=== PATIENT | male | born 1980 | race Caucasian/White ===

== ENCOUNTER 2020-06-03 10:28 | Outpatient (REF) | payer OTHER, SELFPAY | END 2020-06-03 10:29 | disposition home or self-care (01) | LOC: HO.LAB 10:28 | PROVIDERS: Visit Provider Internal Medicine | DX: Z20.828 Contact with and (suspected) exposure to other viral communicable diseases (principal) | CPT/HCPCS: C9803; U0003 ==

== ENCOUNTER 2020-06-26 08:17 | Outpatient (REF) | payer OTHER, SELFPAY | END 2020-06-26 08:18 | disposition home or self-care (01) | LOC: HO.LAB 08:17 | PROVIDERS: PCP Internal Medicine; Visit Provider Internal Medicine | DX: Z20.828 Contact with and (suspected) exposure to other viral communicable diseases (principal) | CPT/HCPCS: C9803; U0003 ==

== ENCOUNTER 2020-11-18 11:23 | Outpatient (REF) | payer OTHER, SELFPAY | END 2020-11-18 11:24 | disposition home or self-care (01) | LOC: HO.LAB 11:23 | PROVIDERS: Visit Provider Nurse Practitioner Family | DX: N39.0 Urinary tract infection, site not specified (principal); R31.9 Hematuria, unspecified | CPT/HCPCS: 87086; 87088; 87186 ==

== ENCOUNTER 2022-05-06 10:28 | Outpatient (REF) | payer OTHER, SELFPAY ==
[2022-05-06 10:52] LABS: MANUAL DIFF FLAG NO
[2022-05-06 11:56] LABS: Basophils Absolute Auto 0.1 X10*3/uL (0.0-0.2); Basophils Percent Auto 0.6 % (0-2); Eosinophils Absolute Auto 0.3 X10*3/uL (0.0-0.4); Eosinophils Percent Auto 4.1 % (0-4); Hematocrit 43.5 % (42.0-52.0); Hemoglobin 14.3 g/dl (14.0-18.0); Imm Gran Abs Auto 0.04 X10*3/uL (0.00-0.03); Imm Gran Pct Auto 0.5 % (0.0-0.4); Lymphocytes Absolute Auto 2.5 X10*3/uL (1.2-4.9); Lymphocytes Percent Auto 29.9 % (20-40); Mean Corpuscular HGB Conc 32.9 g/dl (31.0-36.0); Mean Corpuscular Volume 82.1 fL (80.0-98.0); Mean Platelet Volume 9.2 fL (9.4-12.4); Monocytes Absolute Auto 0.4 X10*3/uL (0.1-1.2); Monocytes Percent Auto 4.4 % (2-11); Neutrophils Percent Auto 60.5 % (45-73); Platelet Count 321 X10*3/uL (160-400); Red Cell Distribution Width 14.5 % (11.0-16.0); White Blood Count 8.3 X10*3/uL (4.8-10.8)
[2022-05-06 12:25] LABS: Appearance Urine Clear; Color Urine Yellow; Glucose Urine UA Negative (Negative); Leukocyte Esterase Urine Negative (Negative); Nitrite Urine Negative (Negative); PH 5.5 (5.0-9.0); Specific Gravity - Urine 1.025 (1.005-1.025); Urine Blood Negative (Negative); Urine Ketones Negative (Negative); Urine Protein Negative (Neg-Trace)
[2022-05-06 12:37] LABS: Alanine Aminotransferase 37 U/L (0-40); Albumin Level 4.1 g/dL (3.5-5.0); Alkaline Phosphatase 87 U/L (39-117); Anion Gap 18 (12-20); Aspartate Amino Transferase 24 U/L (5-37); Bilirubin Total 0.5 mg/dL (0.0-1.0); Blood Urea Nitrogen 13 mg/dL (9-16); Calcium 9.1 mg/dL (8.4-10.2); Carbon Dioxide 22 mmol/L (22-29); Chloride 103 mmol/L (96-108); Cholesterol 190 mg/dL; Estimated Glomerular Filt Rate > 60; Glucose Random 137 mg/dL (60-115); HDL Cholesterol 31 mg/dL; LDL Cholesterol Calculated 119 mg/dl; Potassium 4.5 mmol/L (3.3-5.1); Sodium 138 mmol/L (135-145); Total Protein 7.4 g/dL (6.5-8.0); Triglycerides 201 mg/dL
[2022-05-06 12:39] LABS: Bacteria Urine None Seen (None Seen); Hyaline Casts Urine 0-2 /LPF (0-2); RBC Urine 0-2 /HPF (0-2); Squamous Epithelial Cell Urine 0-2 /HPF (0-2); WBC Urine 0-5 /HPF (0-5)
[2022-05-06 12:46] LABS: Thyroid Stimulating Hormone 1.23 uIU/mL (0.32-4.0)
[2022-05-06 12:58] LABS: Folate 12.9 ng/mL (> or = 4.0); Vitamin B12 464 pg/mL (200-900)
== END 2022-05-06 10:29 | disposition home or self-care (01) ==
LOC: HO.LAB 10:28
PROVIDERS: PCP Internal Medicine; Visit Provider Internal Medicine
DX: N39.0 Urinary tract infection, site not specified (principal); R31.9 Hematuria, unspecified; E78.00 Pure hypercholesterolemia, unspecified; E66.01 Morbid (severe) obesity due to excess calories; Z68.42 Body mass index [BMI] 45.0-49.9, adult
CPT/HCPCS: 36415; 80053; 80061; 81001; 82607; 82746; 84439; 84443; 85025

== ENCOUNTER 2023-02-09 09:08 | Outpatient (REF) | payer OTHER, SELFPAY ==
[2023-02-09 10:49] LABS: Estimated Average Glucose 128 mg/dL; Hemoglobin A1c % 6.1 %
[2023-02-09 11:30] LABS: Alanine Aminotransferase 20 U/L (0-40); Albumin Level 3.9 g/dL (3.5-5.0); Alkaline Phosphatase 83 U/L (39-117); Anion Gap 11 (12-20); Aspartate Amino Transferase 14 U/L (5-37); Bilirubin Total 0.3 mg/dL (0.0-1.0); Blood Urea Nitrogen 11 mg/dL (9-16); Calcium 9.7 mg/dL (8.4-10.2); Carbon Dioxide 27 mmol/L (22-29); Chloride 104 mmol/L (96-108); Cholesterol 197 mg/dL; Estimated Glomerular Filt Rate > 60; Glucose Random 123 mg/dL (60-115); HDL Cholesterol 34 mg/dL; LDL Cholesterol Calculated 132 mg/dl; Sodium 138 mmol/L (135-145); Total Protein 7.6 g/dL (6.5-8.0); Triglycerides 156 mg/dL
== END 2023-02-09 09:09 | disposition home or self-care (01) ==
LOC: HO.LAB 09:08
PROVIDERS: PCP Internal Medicine; Visit Provider Internal Medicine
DX: E78.00 Pure hypercholesterolemia, unspecified (principal)
CPT/HCPCS: 36415; 80053; 80061; 83036

== ENCOUNTER 2023-02-18 15:13 | Outpatient (AMB) | payer OTHER, SELFPAY ==
[2023-02-18 15:20] VITALS: BP 138/78; PULSE 80; O2SAT 98; BMI 46.2
--- NOTE | 2023-02-18 15:20 | MHC.PC.OV ---
Vital Signs 02/18/23 15:20 Height 5 ft 11 in Weight 331 lb BMI 46.2 BP 138/78 Blood Pressure Location Lt brachial Position Sitting Pulse 80 Pulse Source Pulse Oximeter Pulse Oximetry (%) 98 Oxygen Delivery Method Room Air Intake Visit Reasons: DM , Choles Allergies No Known Allergies Allergy (Mild, Verified 02/18/23 15:21) NA Medication List - Last Reconciled 02/18/23 by Nidia Rubio MD blood sugar diagnostic (FreeStyle Lite Strips) As directed check the BS QD blood-glucose meter (FreeStyle Lite Meter kit) As directed [CPAP RESMED FULL FACE MASK MEDIUM 14 cm water humidified AIR As directed] lancets (FreeStyle Lancets) As directed check BS QD metformin 500 mg PO BIDWMEAL 30 days simvastatin 5 mg PO BEDTIME Tobacco use date assessed: 07/30/22 Dental Screening Dental Screen Date: 02/18/23 Did you have a dental visit in the last 12 months?: Yes Did you have a dental problem in the last 6 months where you did not have access to dental care?: No Was dental information given to patient?: Patient has dentist HPI DM , Choles HPI Details 42-year-old obese male with controlled diabetes mellitus hypertension hypercholesterolemia obstructive sleep apnea coming in for follow-up patient was last seen in October 2022 blood work just done. PFSH Medical History Elevated blood pressure reading Morbid obesity with BMI of 45.0-49.9, adult Obstructive sleep apnea Smoker Surgical History History of cholecystectomy Family History (Updated 04/30/22 @ 15:45 by Nidia Rubio MD) Mother No problems noted. Father Pre-diabetes Paternal Grandfather Colon cancer Maternal Grandfather Heart attack Social History (Updated 04/30/22 @ 15:46 by Nidia Rubio MD) Housing: House Alcohol intake: current Alcohol intake frequency: a few times a week Patient Tobacco Use Status: Former Tobacco user Tobacco use type: Cigarette Cigarettes Per Day: 3 Years Smoked: quit 12/2021 e-Cigarette/Vaping Use: Never Used Second Hand Smoke Exposure: Yes service: No Current occupational status: employed Cognitive needs: No Hearing needs: No Vision needs: Yes Questionnaire PHQ-9 Over the last 2 weeks, how often have you been bothered by any of the following problems? 1. Little interest or pleasure in doing things: not at all 2. Feeling down, depressed, or hopeless: not at all 3. Trouble falling or staying asleep, or sleeping too much: not at all 4. Feeling tired or having little energy: not at all 5. Poor appetite or overeating: not at all 6. Feeling bad about yourself - or that you are a failure or have let yourself or your family down: not at all 7. Trouble concentrating on things, such as reading the newspaper or watching television: not at all 8. Moving or speaking so slowly that other people could have noticed. Or the opposite - being so fidgety or restless that you have been moving around a lot more than usual: not at all 9. Thoughts that you would be better off or of hurting yourself in some way: not at all Total score: 0 Depression Screening Interpretation: Negative Source: Developed by Drs. Alok Ortez, Maryann Castellano, Godfrey Garcia and colleagues, with an educational nehemias from [employer]. Thrive Questionnaire Date Thrive assessed: 07/30/22 AUDIT C Alcohol Use Questionnaire (AUDIT-C) 1. How often do you have a drink containing alcohol?: 2-3 times a week 2. How many drinks containing alcohol do you have on a typical day when you are drinking?: 1 or 2 3. How often do you have six or more drinks on one occasion?: Never Total Score: 3 Score Reviewed/Action Taken: Yes ULI-7 AMB Questionnaire ULI-7 Date ULI - 7 assessed: 07/30/22 Source: Developed by Drs. Alok Ortez, Maryann Castellano, Godfrey Garcia and colleagues, with an educational nehemias from [employer]. Physical exam (Primary Care) Vital Signs: Last Vital Signs Pulse 80 02/18/23 15:20 BP 138/78 02/18/23 15:20 Pulse Ox 98 02/18/23 15:20 Oxygen Delivery Method Room Air 02/18/23 15:20 BMI result Body Mass Index 46.2 Tobacco/Smoking Status: Tobacco use Status Tobacco use date assessed 07/30/22 02/18/23 15:24 Patient Tobacco Use Status Former Tobacco user 02/18/23 15:24 Tobacco use type Cigarette 08/04/23 15:24 e-Cigarette/Vaping Use Never Used 02/18/23 15:24 PHQ-9: PHQ-9 Score PHQ-9: Total score 0 02/18/23 15:24 Depression Screening Interpretation: Negative Thrive Assessment: Date of Thrive Assessment Date Thrive assessed 07/30/22 02/18/23 15:24 Const General: alert; No acute distress Eyes Conjunctivae: conjunctivae normal Resp Auscultation: clear to auscultation bilaterally Cardio Rate: regular rate Rhythm: regular rhythm GI Inspection: Yes normal to inspection Extrem General: Yes normal to inspection and No edema Assessment and Plan Assessment & Plan (1) Morbid obesity with BMI of 45.0-49.9, adult: Code(s): E66.01 - Morbid (severe) obesity due to excess calories; Z68.42 - Body mass index [BMI] 45.0-49.9, adult Plan: Diet and exercise (2) Type 2 diabetes mellitus with hyperglycemia: Comment: Dostal eye Code(s): E11.65 - Type 2 diabetes mellitus with hyperglycemia Plan: Decrease the amount of carbohydrate intake, pasta, bread, rice and potatoes are all sugar and that is aside from all the sweet stuff, remember that fruits are good but they are Sweet also. Hemoglobin A1c goal of less than 6.5 patient is on metformin 500 mg twice a day (3) Hypercholesterolemia: Code(s): E78.00 - Pure hypercholesterolemia, unspecified Plan: Avoid fried foods, chicken skin, eggs, butter margarine, pastries and meat. Be it pork or beef they have a lot of cholesterol LDL goal of less than 100 and is going to be started on simvastatin 5 mg at bedtime and will retest in 3 months (4) Obstructive sleep apnea: Comment: CPAP Code(s): G47.33 - Obstructive sleep apnea (adult) (pediatric) Plan: Continue to use the CPAP more than 4 hours a night and benefits from this Orders: Orders Comprehensive Met. Panel 3 Months E78.00 - Pure hypercholesterolemia, unspecified Hemoglobin A1c 3 Months E78.00 - Pure hypercholesterolemia, unspecified Lipid Panel 3 Months E78.00 - Pure hypercholesterolemia, unspecified Medications: New simvastatin 5 mg PO BEDTIME 30 tabs 4RF E78.00 - Pure hypercholesterolemia, unspecified [CPAP RESMED FULL FACE MASK MEDIUM 14 cm water humidified AIR] As directed 1 ea 0RF G47.33 - Obstructive sleep apnea (adult) (pediatric) Coding Level of Care Code Est Pt Level 4 (13769) Diagnoses Morbid obesity with BMI of 45.0-49.9, adult E66.01; Z68.42 Type 2 diabetes mellitus with hyperglycemia E11.65 Hypercholesterolemia E78.00 Obstructive sleep apnea G47.33 Additional Codes PHQ-9 - 88113 - PHQ-9 Billing: Y ([id number])
== END 2023-02-18 15:42 | disposition home or self-care (01) ==
PROVIDERS: PCP Internal Medicine; Visit Provider Internal Medicine
DX: E66.01 Morbid (severe) obesity due to excess calories (principal); Z68.42 Body mass index [BMI] 45.0-49.9, adult; E11.65 Type 2 diabetes mellitus with hyperglycemia; E78.00 Pure hypercholesterolemia, unspecified; G47.33 Obstructive sleep apnea (adult) (pediatric)
CPT/HCPCS: 99214

== ENCOUNTER 2023-05-10 10:44 | Outpatient (REF) | payer OTHER, SELFPAY ==
[2023-05-10 11:27] LABS: Estimated Average Glucose 140 mg/dL; Hemoglobin A1c % 6.5 % (<6.0)
[2023-05-10 12:32] LABS: Alanine Aminotransferase 34 U/L (0-40); Alkaline Phosphatase 85 U/L (39-117); Anion Gap 16 (12-20); Aspartate Amino Transferase 23 U/L (5-37); Bilirubin Total 0.4 mg/dL (0.0-1.0); Blood Urea Nitrogen 9 mg/dL (9-16); Calcium 9.5 mg/dL (8.4-10.2); Carbon Dioxide 23 mmol/L (22-29); Chloride 103 mmol/L (96-108); Cholesterol 202 mg/dL (<200); Estimated Glomerular Filt Rate > 60; Glucose Random 130 mg/dL (60-115); HDL Cholesterol 33 mg/dL (>40); LDL Cholesterol Calculated 129 mg/dL (<100); Potassium 4.1 mmol/L (3.3-5.1); Sodium 138 mmol/L (135-145); Total Protein 7.6 g/dL (6.5-8.0); Triglycerides 203 mg/dL (<150)
== END 2023-05-10 10:45 | disposition home or self-care (01) ==
LOC: HO.LAB 10:44
PROVIDERS: PCP Internal Medicine; Visit Provider Internal Medicine
DX: E78.00 Pure hypercholesterolemia, unspecified (principal)
CPT/HCPCS: 36415; 80053; 80061; 83036

== ENCOUNTER 2023-05-12 15:45 | Outpatient (AMB) | payer OTHER, SELFPAY ==
[2023-05-12 16:12] VITALS: BP 140/80; PULSE 90; O2SAT 98; BMI 46.4
--- NOTE | 2023-05-12 16:12 | A.OFFPC_ITS ---
Vital Signs 05/12/23 16:12 05/12/23 16:52 Height 5 ft 11 in Weight 333 lb BMI 46.4 BP 140/80 H 124/70 Blood Pressure Location Lt brachial Lt brachial Position Sitting Sitting Pulse 90 Pulse Source Pulse Oximeter Pulse Oximetry (%) 98 Oxygen Delivery Method Room Air Intake Visit Reasons: physical Allergies No Known Allergies Allergy (Mild, Verified 05/12/23 16:12) NA Medication List - Last Reconciled 05/12/23 by Nidia Rubio MD blood sugar diagnostic (FreeStyle Lite Strips) As directed check the BS QD blood-glucose meter (FreeStyle Lite Meter kit) As directed [CPAP RESMED FULL FACE MASK MEDIUM 14 cm water humidified AIR As directed] lancets (FreeStyle Lancets) As directed check BS QD metformin 500 mg PO BIDWMEAL 30 days simvastatin 5 mg PO BEDTIME Tobacco use date assessed: 07/30/22 Dental Screening Dental Screen Date: 05/12/23 Did you have a dental visit in the last 12 months?: Yes Did you have a dental problem in the last 6 months where you did not have access to dental care?: No Was dental information given to patient?: Patient has dentist HPI physical HPI Details 42-year-old morbidly obese male with sheri betes mellitus hypercholesterolemia obstructive sleep apnea last seen in February 2023. Patient is here for physical exam. feverish ,LEON, congested, no sore throat, mild sob, PFSH Medical History Obstructive sleep apnea Morbid obesity with BMI of 45.0-49.9, adult Elevated blood pressure reading Smoker Surgical History History of cholecystectomy Family History Mother No problems noted. Father Pre-diabetes Paternal Grandfather Colon cancer Maternal Grandfather Heart attack Social History (Updated 05/12/23 @ 16:55 by Nidia Rubio MD) Housing: House Alcohol intake: current Alcohol intake frequency: a few times a week Patient Tobacco Use Status: Former Tobacco user Tobacco use type: Cigarette Cigarettes Per Day: 3 Years Smoked: quit 12/2021 cigar smoking e-Cigarette/Vaping Use: Never Used Second Hand Smoke Exposure: Yes service: No Current occupational status: employed Cognitive needs: No Hearing needs: No Vision needs: Yes Questionnaire PHQ-9 Over the last 2 weeks, how often have you been bothered by any of the following problems? 1. Little interest or pleasure in doing things: not at all 2. Feeling down, depressed, or hopeless: not at all 3. Trouble falling or staying asleep, or sleeping too much: not at all 4. Feeling tired or having little energy: not at all 5. Poor appetite or overeating: not at all 6. Feeling bad about yourself - or that you are a failure or have let yourself or your family down: not at all 7. Trouble concentrating on things, such as reading the newspaper or watching television: not at all 8. Moving or speaking so slowly that other people could have noticed. Or the opposite - being so fidgety or restless that you have been moving around a lot more than usual: not at all 9. Thoughts that you would be better off or of hurting yourself in some way: not at all Total score: 0 Depression Screening Interpretation: Negative Depression Screening Done: Yes Source: Developed by Drs. Alok Ortez, Maryann Castellano, Godfrey Garcia and colleagues, with an educational nehemias from [employer]. Thrive Questionnaire Date Thrive assessed: 07/30/22 AUDIT C Alcohol Use Questionnaire (AUDIT-C) 1. How often do you have a drink containing alcohol?: 2-3 times a week 2. How many drinks containing alcohol do you have on a typical day when you are drinking?: 1 or 2 3. How often do you have six or more drinks on one occasion?: Never Total Score: 3 Score Reviewed/Action Taken: Yes ULI-7 AMB Questionnaire ULI-7 Date ULI - 7 assessed: 07/30/22 Source: Developed by Drs. Alok Ortez, Maryann Castellano, Godfrey Garcia and colleagues, with an educational nehemias from [employer]. Review of Systems Const Denies poor appetite and Denies weakness Eyes Denies no additional complaints ENT Reports Normal hearing present, Denies dizziness, Denies nasal congestion, Denies tinnitus and Denies sore throat Card Denies chest pain, Denies syncope, Denies rapid heart rate and Denies dyspnea Resp Denies cough and Denies dyspnea GI Denies change in stool character, Reports constipation, Denies diarrhea, Denies nausea and Denies vomiting Denies dysuria and Denies urinary frequency Neuro Reports Normal hearing present, Denies confusion, Denies dizziness, Denies syncope and Denies weakness Psych Denies confusion Physical exam (Primary Care) Vital Signs: Last Vital Signs Pulse 90 05/12/23 16:12 BP 140/80 H 05/12/23 16:12 Pulse Ox 98 05/12/23 16:12 Oxygen Delivery Method Room Air 05/12/23 16:12 BMI result Body Mass Index 46.4 Tobacco/Smoking Status: Tobacco use Status Tobacco use date assessed 07/30/22 05/12/23 16:13 Patient Tobacco Use Status Former Tobacco user 05/12/23 16:13 Tobacco use type Cigarette 05/12/23 16:13 e-Cigarette/Vaping Use Never Used 05/12/23 16:13 PHQ-9: PHQ-9 Score PHQ-9: Total score 0 05/12/23 16:13 Depression Screening Interpretation: Negative Thrive Assessment: Date of Thrive Assessment Date Thrive assessed 07/30/22 05/12/23 16:13 Const General: alert and awake; No confusion Orientation/consciousness: No confusion HENMT Head: Yes normocephalic Ears: external ears normal and TM's normal bilaterally Face and sinus: Yes normal facial exam Mouth: moist mucous membranes Throat: Yes tonsils normal Eyes Conjunctivae: conjunctivae normal Pupils: Equal, round and reactive pupils present and Pupil accommodation reflex normal Direct Ophthalmoscopy: normal light reflex Neck Neck: No lymphadenopathy Thyroid: Thyroid normal Chest Chest palpation & inspection: normal inspection of the chest Resp Effort & Inspection: normal respiratory effort and no audible wheezes Auscultation: clear to auscultation bilaterally, no crackles, no wheezes and lung sounds not diminished Cardio Rate: regular rate Rhythm: regular rhythm Peripheral pulses: radial pulses present and dorsalis pedis present GI Palpation (GI): no masses Auscultation: normal bowel sounds and normoactive bowel sounds Rectal Exam - Male: Yes deferred Skin Other: Multiple 5 mm skin tags over the neck area posteriorly Neuro General: deep tendon reflexes 2+ bilaterally and No confusion Cranial nerves: Yes Equal, round and reactive pupils present, Yes Midline tongue present, Yes Normal hearing present and Yes Ability to bilaterally elevate shoulders present Cognition (Neuro): normal cognition Gait exam (Neuro): Normal gait present Motor exam (neuro): 5/5 motor strength present throughout Deep tendon reflexes (DTR's): Right brachioradialis reflex intensity grade: 2+, Left brachioradialis reflex intensity grade: 2+, Right patellar reflex intensity grade: 2+ and Left patellar reflex intensity grade: 2+ Extrem General: No edema Assessment and Plan Assessment & Plan (1) Annual physical exam: Code(s): Z00.00 - Encounter for general adult medical examination without abnormal findings (2) Obstructive sleep apnea: Comment: CPAP Code(s): G47.33 - Obstructive sleep apnea (adult) (pediatric) Plan: Continue to use the CPAP more than 4 hours a night benefits from this (3) Morbid obesity with BMI of 45.0-49.9, adult: Code(s): E66.01 - Morbid (severe) obesity due to excess calories; Z68.42 - Body mass index [BMI] 45.0-49.9, adult Plan: Diet and exercise (4) Type 2 diabetes mellitus with hyperglycemia: Comment: Dostal eye Code(s): E11.65 - Type 2 diabetes mellitus with hyperglycemia Plan: Decrease the amount of carbohydrate intake, pasta, bread, rice and potatoes are all sugar and that is aside from all the sweet stuff, remember that fruits are good but they are Sweet also. Hemoglobin A1c goal of less than 6.5 patient is on metformin 500 mg twice a day hemoglobin A1c is 6.5 (5) Hypertension: Code(s): I10 - Essential (primary) hypertension Plan: Presently not on any medication (6) Hypercholesterolemia: Code(s): E78.00 - Pure hypercholesterolemia, unspecified Plan: Avoid fried foods, chicken skin, eggs, butter margarine, pastries and meat. Be it pork or beef they have a lot of cholesterol LDL goal of less than 130 and triglyceride of less than 150 patient has been placed on simvastatin 5 mg once a day concern that cholesterol is elevated still but patient is aware of his indiscriminately eating and will do better, decline any change in dose of medication (7) Upper respiratory infection: Code(s): J06.9 - Acute upper respiratory infection, unspecified Plan: Discussed with the patient that I do not see any signs of bacterial infection. Patient is bothered by the phlegm and so advised to take Mucinex 600 mg twice a day for the phlegm. Advised to increase oral fluids. For dry cough Delsym (8) Skin tag: Code(s): L91.8 - Other hypertrophic disorders of the skin Plan: Noted on the right neck area, referral to Dermatology Orders: Orders Complete Blood Count Auto Diff 3 Months E11.65 - Type 2 diabetes mellitus with hyperglycemia Comprehensive Met. Panel 3 Months E11.65 - Type 2 diabetes mellitus with hyperglycemia Vitamin B12 and Folate 3 Months E11.65 - Type 2 diabetes mellitus with hyperglycemia Hemoglobin A1c 3 Months E11.65 - Type 2 diabetes mellitus with hyperglycemia Lipid Panel 3 Months E11.65 - Type 2 diabetes mellitus with hyperglycemia, E78.00 - Pure hypercholesterolemia, unspecified Free T4 (Free Thyroxine) 3 Months E11.65 - Type 2 diabetes mellitus with hyperglycemia Thyroid Stimulating Hormone 3 Months E11.65 - Type 2 diabetes mellitus with hyperglycemia Creatinine Urine 3 Months E11.65 - Type 2 diabetes mellitus with hyperglycemia Microalbumin, Random (w Creat) 3 Months E11.65 - Type 2 diabetes mellitus with hyperglycemia Referrals Dermatology Referral L91.8 - Other hypertrophic disorders of the skin Medications: New guaifenesin ER (Mucinex) 600 mg PO Q12H PRN 20 tabs 0RF congestion J06.9 - Acute upper respiratory infection, unspecified Coding Level of Care Code Est Pt Prev Care 40-64y(19304) Diagnoses Annual physical exam Z00.00 Obstructive sleep apnea G47.33 Morbid obesity with BMI of 45.0-49.9, adult E66.01; Z68.42 Type 2 diabetes mellitus with hyperglycemia E11.65 Hypertension I10 Hypercholesterolemia E78.00 Upper respiratory infection J06.9 Skin tag L91.8 Additional Codes PHQ-9 - 53821 - PHQ-9 Billing: ([id number])
[2023-05-12 16:52] VITALS: BP 124/70
== END 2023-05-12 17:05 | disposition home or self-care (01) ==
PROVIDERS: Visit Provider Internal Medicine
DX: Z00.00 Encounter for general adult medical examination without abnormal findings (principal); E66.01 Morbid (severe) obesity due to excess calories; Z68.42 Body mass index [BMI] 45.0-49.9, adult; E11.65 Type 2 diabetes mellitus with hyperglycemia; F17.210 Nicotine dependence, cigarettes, uncomplicated; G47.33 Obstructive sleep apnea (adult) (pediatric); I10 Essential (primary) hypertension; E78.00 Pure hypercholesterolemia, unspecified; J06.9 Acute upper respiratory infection, unspecified; L91.8 Other hypertrophic disorders of the skin
CPT/HCPCS: 99396

== ENCOUNTER 2023-11-23 09:10 | Outpatient (REF) | payer OTHER, SELFPAY ==
[2023-11-23 09:32] LABS: MANUAL DIFF FLAG NO
[2023-11-23 10:07] LABS: Basophils Percent Auto 0.6 % (0-2); Eosinophils Absolute Auto 0.3 X10*3/uL (0.0-0.4); Eosinophils Percent Auto 4.5 % (0-4); Hematocrit 41.1 % (42.0-52.0); Hemoglobin 13.6 g/dl (14.0-18.0); Imm Gran Abs Auto 0.07 X10*3/uL (0.00-0.03); Lymphocytes Absolute Auto 2.4 X10*3/uL (1.2-4.9); Lymphocytes Percent Auto 35.9 % (20-40); Mean Corpuscular HGB Conc 33.1 g/dl (31.0-36.0); Mean Corpuscular Volume 84.6 fL (80.0-98.0); Mean Platelet Volume 9.5 fL (9.4-12.4); Monocytes Absolute Auto 0.4 X10*3/uL (0.1-1.2); Monocytes Percent Auto 5.9 % (2-11); Neutrophils Absolute Auto 3.5 x10*3/uL (2.0-8.3); Neutrophils Percent Auto 52.1 % (45-73); Platelet Count 352 X10*3/uL (160-400); Red Blood Count 4.86 X10*6/uL (4.60-5.80); Red Cell Distribution Width 13.9 % (11.0-16.0); White Blood Count 6.7 X10*3/uL (4.8-10.8)
[2023-11-23 10:15] LABS: Estimated Average Glucose 237 mg/dL; Hemoglobin A1c % 9.9 % (<6.0)
[2023-11-23 10:38] LABS: Alanine Aminotransferase 68 U/L (0-40); Albumin Level 3.9 g/dL (3.5-5.0); Alkaline Phosphatase 98 U/L (39-117); Anion Gap 17 (12-20); Aspartate Amino Transferase 67 U/L (5-37); Bilirubin Total 0.4 mg/dL (0.0-1.0); Blood Urea Nitrogen 12 mg/dL (9-16); Calcium 9.6 mg/dL (8.4-10.2); Carbon Dioxide 21 mmol/L (22-29); Chloride 104 mmol/L (96-108); Cholesterol 192 mg/dL (<200); Estimated Glomerular Filt Rate > 60; Glucose Random 173 mg/dL (60-115); HDL Cholesterol 21 mg/dL (>40); LDL Cholesterol Calculated 132 mg/dL (<100); Potassium 3.7 mmol/L (3.3-5.1); Sodium 138 mmol/L (135-145); Total Protein 7.8 g/dL (6.5-8.0); Triglycerides 199 mg/dL (<150)
[2023-11-23 11:01] LABS: Free T4 (Free Thyroxine) 1.34 ng/dL (0.71-1.85); Thyroid Stimulating Hormone 1.26 uIU/mL (0.32-4.0)
[2023-11-23 11:02] LABS: Vitamin B12 906 pg/mL (200-900)
[2023-11-23 11:25] LABS: Microalbum/Creatinine Ratio Ur 5.5 ug/mg cr (<30)
== END 2023-11-23 09:11 | disposition home or self-care (01) ==
LOC: HO.LAB 09:10
PROVIDERS: PCP Internal Medicine; Visit Provider Internal Medicine
DX: E11.65 Type 2 diabetes mellitus with hyperglycemia (principal); E78.00 Pure hypercholesterolemia, unspecified
CPT/HCPCS: 36415; 80053; 80061; 82043; 82570; 82607; 82746; 83036; 84439; 84443; 85025

== ENCOUNTER 2023-11-24 12:46 | Outpatient (AMB) | payer OTHER, SELFPAY ==
[2023-11-24 12:58] VITALS: BP 134/70; PULSE 77; O2SAT 98; BMI 45.5
--- NOTE | 2023-11-24 12:58 | A.OFFPC_ITS ---
Vital Signs 11/24/23 12:58 Height 5 ft 11 in Weight 326 lb BMI 45.5 BP 134/70 Blood Pressure Location Lt brachial Position Sitting Pulse 77 Pulse Source Pulse Oximeter Pulse Oximetry (%) 98 Oxygen Delivery Method Room Air Intake Visit Reasons: 3 month follow up Allergies No Known Allergies Allergy (Mild, Verified 11/24/23 12:58) NA Tobacco use date assessed: 11/24/23 Dental Screening Dental Screen Date: 11/24/23 Did you have a dental visit in the last 12 months?: Yes Did you have a dental problem in the last 6 months where you did not have access to dental care?: No Was dental information given to patient?: Patient has dentist HPI 3 month follow up HPI Details 43-year-old morbidly obese male with sheri betes mellitus controlled obstructive sleep apnea hypertension hypercholesterolemia last seen in April 2023 patient is here for follow-up. PFSH Medical History Morbid obesity with BMI of 45.0-49.9, adult Obstructive sleep apnea Elevated blood pressure reading Smoker Surgical History History of cholecystectomy Family History Mother No problems noted. Father Pre-diabetes Paternal Grandfather Colon cancer Maternal Grandfather Heart attack Social History (Updated 05/12/23 @ 16:55 by Nidia Rubio MD) Housing: House Alcohol intake: current Alcohol intake frequency: a few times a week Patient Tobacco Use Status: Former Tobacco user Tobacco use type: Cigarette Cigarettes Per Day: 3 Years Smoked: quit 12/2021 cigar smoking e-Cigarette/Vaping Use: Never Used Second Hand Smoke Exposure: Yes service: No Current occupational status: employed Cognitive needs: No Hearing needs: No Vision needs: Yes Questionnaire PHQ-9 Over the last 2 weeks, how often have you been bothered by any of the following problems? 1. Little interest or pleasure in doing things: not at all 2. Feeling down, depressed, or hopeless: not at all 3. Trouble falling or staying asleep, or sleeping too much: not at all 4. Feeling tired or having little energy: not at all 5. Poor appetite or overeating: not at all 6. Feeling bad about yourself - or that you are a failure or have let yourself or your family down: not at all 7. Trouble concentrating on things, such as reading the newspaper or watching television: not at all 8. Moving or speaking so slowly that other people could have noticed. Or the opposite - being so fidgety or restless that you have been moving around a lot more than usual: not at all 9. Thoughts that you would be better off or of hurting yourself in some way: not at all Total score: 0 Depression Screening Interpretation: Negative Depression Screening Done: Yes Source: Developed by Drs. Alok Ortez, Maryann Castellano, Godfrey Garcia and colleagues, with an educational nehemias from [employer]. Thrive Questionnaire Date Thrive assessed: 11/24/23 I am a: Patient What is your living situation today?: I have a steady place to live Within the past 12 months, did the food you bought not last and you didn't have the money to get more?: Never true Within the past 12 months, did you worry whether your food would run out before you got money to buy more?: Never true Do you have trouble paying for medicines?: No Do you have trouble getting transportation to medical appointments?: No Do you have trouble paying your heating and electricity bill?: No Do you have trouble taking care of your child, family member or friend?: No Do you have trouble with day-to-day activities such as bathing, preparing meals, shopping, managing finances, etc.?: No Are you currently unemployed and looking for a job?: No Are you interested in more education?: No Currently or been in a relationship where the following occur: no concerns reported THRIVE Score: 0 AUDIT C Alcohol Use Questionnaire (AUDIT-C) 1. How often do you have a drink containing alcohol?: 2-3 times a week 2. How many drinks containing alcohol do you have on a typical day when you are drinking?: 1 or 2 3. How often do you have six or more drinks on one occasion?: Never Total Score: 3 Score Reviewed/Action Taken: Yes ULI-7 AMB Questionnaire ULI-7 Date ULI - 7 assessed: 11/24/23 Feeling nervous, anxious, or on edge: 0 = Not at all Not being able to stop or control worryin = Not at all Worrying too much about different things: 0 = Not at all Trouble relaxin = Not at all Being so restless that it is hard to sit still: 0 = Not at all Becoming easily annoyed or irritable: 0 = Not at all Feeling afraid as if something awful might happen: 0 = Not at all Total ULI-7 score (0-4 normal; 5-9 mild; 10-14 moderate; 15-21 severe): 0 Source: Developed by Drs. Alok Ortez, Maryann Castellano, Godfrey Garcia and colleagues, with an educational nehemias from [employer]. Physical exam (Primary Care) Vital Signs: Oxygen Delivery Method Room Air 11/24/23 12:58 BMI result Body Mass Index 45.5 Tobacco/Smoking Status: Tobacco use Status Tobacco use date assessed 07/30/22 05/12/23 16:13 Patient Tobacco Use Status Former Tobacco user 05/12/23 16:55 Tobacco use type Cigarette 05/12/23 16:55 e-Cigarette/Vaping Use Never Used 05/12/23 16:55 Depression Screening Interpretation: Negative Thrive Assessment: Date of Thrive Assessment Date Thrive assessed 07/30/22 05/12/23 16:13 Currently or been in a relationship where the following occur: no concerns reported Const General: alert; No acute distress Eyes Conjunctivae: conjunctivae normal Resp Auscultation: clear to auscultation bilaterally Cardio Rate: regular rate Rhythm: regular rhythm GI Inspection: Yes normal to inspection Extrem General: Yes normal to inspection and No edema Assessment and Plan Assessment & Plan (1) Type 2 diabetes mellitus with hyperglycemia: Comment: Dostal eye Code(s): E11.65 - Type 2 diabetes mellitus with hyperglycemia Plan: Decrease the amount of carbohydrate intake, pasta, bread, rice and potatoes are all sugar and that is aside from all the sweet stuff, remember that fruits are good but they are Sweet also. Presently on metformin 500 mg twice a day concern that hemoglobin A1c has increased to 9.9. Will need to add medication. (2) Hypercholesterolemia: Code(s): E78.00 - Pure hypercholesterolemia, unspecified Plan: Avoid fried foods, chicken skin, eggs, butter margarine, pastries and meat. Be it pork or beef they have a lot of cholesterol presently on simvastatin 5 mg once a day LDL goal is less than 100 and triglyceride of less than 150. (3) Obstructive sleep apnea: Comment: CPAP Code(s): G47.33 - Obstructive sleep apnea (adult) (pediatric) Plan: Continue to use the CPAP more than 4 hours a night and benefits from this (4) Morbid obesity: Code(s): E66.01 - Morbid (severe) obesity due to excess calories Plan: Concern about the weight, has decreased a little bit continue with diet and exercise (5) LFT elevation: Code(s): R79.89 - Other specified abnormal findings of blood chemistry (6) Anemia: Code(s): D64.9 - Anemia, unspecified (7) Constipation: Code(s): K59.00 - Constipation, unspecified (8) Rectal bleed: Code(s): K62.5 - Hemorrhage of anus and rectum Orders: Orders Lipid Panel 3 Months E78.00 - Pure hypercholesterolemia, unspecified, R7.89 - Other specified abnormal findings of blood chemistry Complete Blood Count Auto Diff 3 Months D64.9 - Anemia, unspecified Ferritin 3 Months D64.9 - Anemia, unspecified Comprehensive Met. Panel 3 Months R7.89 - Other specified abnormal findings of blood chemistry Hepatitis B,C Profile 3 Months R7.89 - Other specified abnormal findings of blood chemistry US abdomen limited Today R7.89 - Other specified abnormal findings of blood chemistry IRON PROFILE 3 Months D64.9 - Anemia, unspecified Reticulocyte Count 3 Months D64.9 - Anemia, unspecified Vitamin B12 and Folate 3 Months D64.9 - Anemia, unspecified Medications: New sennosides-docusate sodium 8.6-50 mg (Senna Plus) 1 tab-cap PO BEDTIME 60 tabs 0RF K59.00 - Constipation, unspecified hydrocortisone 2.5% (Proctosol HC) 1 appl NC BID-QID PRN 30 grams 0RF itching K62.5 - Hemorrhage of anus and rectum semaglutide (Ozempic) for 4 weeks 0.25 mg (0.368 mL) subcut QWEEK 3 mL 1RF E11.65 - Type 2 diabetes mellitus with hyperglycemia Changed From simvastatin 5 mg PO BEDTIME 30 tabs 1RF E78.00 - Pure hypercholesterolemia, unspecified To simvastatin 10 mg PO BEDTIME 30 tabs 3RF E78.00 - Pure hypercholesterolemia, unspecified Coding Level of Care Code Est Pt Level 4 (26008) Diagnoses Type 2 diabetes mellitus with hyperglycemia E11.65 Hypercholesterolemia E78.00 Obstructive sleep apnea G47.33 Morbid obesity E66.01 LFT elevation R79.89 Anemia D64.9 Constipation K59.00 Rectal bleed K62.5 Additional Codes PHQ-9 - 25986 - PHQ-9 Billing: ([id number])
== END 2023-11-24 13:19 | disposition home or self-care (01) ==
PROVIDERS: PCP Internal Medicine; Visit Provider Internal Medicine
DX: E11.65 Type 2 diabetes mellitus with hyperglycemia (principal); E66.01 Morbid (severe) obesity due to excess calories; Z68.42 Body mass index [BMI] 45.0-49.9, adult; E78.00 Pure hypercholesterolemia, unspecified; G47.33 Obstructive sleep apnea (adult) (pediatric); R79.89 Other specified abnormal findings of blood chemistry; D64.9 Anemia, unspecified; K59.00 Constipation, unspecified; K62.5 Hemorrhage of anus and rectum
CPT/HCPCS: 99214

== ENCOUNTER 2023-12-16 07:49 | Outpatient (REF) | payer OTHER, SELFPAY ==
--- NOTE | ~2023-12-16 | US_ITS ---
EXAMINATION: US ABDOMEN COMPLETE CLINICAL INFORMATION: Other specified abnormal findings of blood chemistry. COMPARISON: None available. TECHNIQUE: Real-time imaging of the abdominal viscera. Technically severely limited study secondary to body habitus. FINDINGS: PANCREAS: Poorly visualized. ABDOMINAL AORTA: Poorly visualized. INFERIOR VENA CAVA: Poorly visualized. LIVER: Increased hepatic parenchymal heterogeneity and echogenicity could be associated with hepatocellular disease/hepatic steatosis and severely limits visualization. Correlation with liver function tests and clinical exam recommended to determine further management. GALLBLADDER: Surgically absent. COMMON BILE DUCT: Normal in caliber measuring 0.5 cm in diameter. RIGHT KIDNEY: No hydronephrosis. No renal calculi. Limited visualization. The kidney measures 10.4 cm in maximum dimension. LEFT KIDNEY: No hydronephrosis. No renal calculi. Limited visualization. The kidney measures 13.1 cm in maximum dimension. SPLEEN: Splenomegaly The spleen measures 13.4 cm in maximum dimension. FREE FLUID: None. US/US abdomen complete IMPRESSION: 1. Increased hepatic parenchymal heterogeneity and echogenicity could be associated with hepatocellular disease/hepatic steatosis and severely limits visualization. Correlation with liver function tests and clinical exam recommended to determine further management. 2. Splenomegaly. 3. Gallbladder surgically absent. 4. Severely limited visualization due to bowel gas and body habitus. CT scanning should be considered for better visualization based on the clinical assessment.
== END 2023-12-16 07:50 | disposition home or self-care (01) ==
LOC: HO.US 07:49
PROVIDERS: PCP Internal Medicine; Visit Provider Internal Medicine
DX: R79.89 Other specified abnormal findings of blood chemistry (principal)
CPT/HCPCS: 76700

== ENCOUNTER 2024-03-27 13:42 | Outpatient (AMB) | payer OTHER, SELFPAY ==
--- NOTE | 2024-03-27 13:47 | A.OFFVIS_ITS ---
Vital Signs 03/27/24 13:51 Height 5 ft 11 in Weight 316 lb 9.341 oz BMI 44.1 BP 114/72 Blood Pressure Location Rt brachial Position Sitting Pulse 95 Pulse Source Pulse Oximeter Intake Visit Reasons: DM/LVM Intake Note: New patient present today for Diabetes Mellitus. 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 The patient was diagnosed in 2022. Patient tells me that earlier this year he went on a trip to the [facility] in [facility]. He was drinking more alcohol and not watching his diet at all. When he returned his lab work had worsened. He has made recent changes to his diet. He started monitoring his blood sugar. Patient says initially his fasting glucose readings were 300-400. During the last month they have been between 108-120. Hemoglobin a1c 11.9% today. Not taking Ozempic 0.25 mg on med list. Patient says it was not approved by insurance. He wants to try a GLP 1 to help with weight loss. Patient says he has lost about 35 lb over the last year with lifestyle modification. Taking metformin 500 mg twice a day. Metformin causes stomach cramps sometimes (one per month). He says this is manageable. His grandfather had diabetes. Current medication regimen: Metformin 500 mg twice a day. Diet: Breakfast-eggs and wheat toast or [place]e muffin. Lunch-small serving rice, corn or chicken or beef (baked and grilled) Dinner-fruit salad, vegetables, yogurt, salad Snacks/desserts: not usually Stopped soda and does not drink juice. Drinks water. Nonsmoker. No alcohol use since the vacation he took. Hypoglycemia symptoms: none Hyperglycemia symptoms: polydipsia, polyuria Eye exam: 1 week ago- no retinopathy per patient. Microvascular complications: none Macrovascular complications: none Hyperlipidemia: treated with simvastatin 10 mg. ROS: Constitutional: No unexplained weight loss, fever, chills, fatigue or night sweats. Eyes: No vision changes Respiratory: No shortness of breath, cough or sputum production. Cardiovascular: No chest pain, chest pressure or chest discomfort. Neurologic: No headache, dizziness, syncope Skin: No rash Endocrine: No cold or heat intolerance. Physical exam: Constitutional: Alert, in no distress. Neck: Supple, Full range of motion. No lymphadenopathy. No palpable thyroid masses. Respiratory: Clear to auscultation. Cardiovascular: S1 S2 regular. No murmurs. Right foot: Warm and well perfused. No clubbing, cyanosis or edema. DP pulse 3+. Intact vibratory sensation. Intact sensation to monofilament. Left foot: Warm and well perfused. No clubbing, cyanosis or edema. DP pulse 3+. Intact vibratory sensation. Intact sensation to monofilament. PFSH Medical History Morbid obesity with BMI of 45.0-49.9, adult Obstructive sleep apnea Elevated blood pressure reading Smoker Surgical History History of cholecystectomy Family History Mother No problems noted. Father Pre-diabetes Paternal Grandfather Colon cancer Maternal Grandfather Heart attack Social History Housing: House Alcohol intake: current Alcohol intake frequency: a few times a week Patient Tobacco Use Status: Former Tobacco user Tobacco use type: Cigarette Cigarettes Per Day: 3 Years Smoked: quit 12/2021 cigar smoking e-Cigarette/Vaping Use: Never Used Second Hand Smoke Exposure: Yes service: No Current occupational status: employed Cognitive needs: No Hearing needs: No Vision needs: Yes Physical Exam Vital Signs: Last Vital Signs Pulse 95 03/27/24 13:51 BP 114/72 03/27/24 13:51 BMI result Body Mass Index 44.1 Results AMB Hemoglobin A1c AMB Hemoglobin A1c 11.9 % Last Edit by LUCI Garrison on 03/27/24 14:07 Results Reviewed Results Reviewed: Laboratory Last Values Glucose (Clinic) 328 mg/dL (60-115) H 03/27/24 13:58 Laboratory Tests 05/10/23 11/23/23 11/23/23 10:59 09:29 09:30 Creatinine 0.83 Estimated GFR > 60 Hemoglobin A1c % 6.5 H 9.9 H Triglycerides 199 H Cholesterol 192 LDL Cholesterol, Calc 132 H HDL Cholesterol 21 L TSH 1.26 Free T4 1.34 Urine Creatinine 340.00 Urine Microalbumin 19.0 Microalb/Creat Ratio 5.5 Assessment & Plan Assessment & Plan (1) Type 2 diabetes mellitus with hyperglycemia: Code(s): E11.65 - Type 2 diabetes mellitus with hyperglycemia Category: Medical Qualifiers: 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 Patient declined increase in metformin. States he does not want to get side effects with the medication. Offered to change to extended release formulation which may minimize side effects. He declined. He will continue 500 mg twice daily. He is eager to start GLP 1 to help with weight loss, and I would like him to start the medication given uncontrolled diabetes and hepatic steatosis. Congratulated him on weight loss with lifestyle modifications. I prescribed Mounjaro 2.5 mg weekly. Side effects administration reviewed. He denies contraindications to this type of medication. Discussed need for titration based on tolerability and response. Patient will call me after he takes the 3rd injection. If he is tolerating this we will increase to 5 mg once weekly. I recommended compliance with home glucose monitoring. I am unsure if patient will be compliant with this. He declines CGM. Declines referral to breastfeeding educator and dietitian. Discussed pathophysiology of Type II Diabetes Mellitus with the patient in detail.? I explained the shelter risks and complications associated with uncontrolled diabetes including nephropathy, neuropathy, peripheral vascular disease, retinopathy, increased risk of heart disease and stroke.? Follow up in 3 months for diabetes. 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
[2024-03-27 13:51] VITALS: BP 114/72; PULSE 95; BMI 44.1
[2024-03-27 14:03] LABS: Glucose, Whole Blood 328 mg/dL (60-115)
== END 2024-03-27 14:34 | disposition home or self-care (01) ==
PROVIDERS: PCP Internal Medicine; Visit Provider Physician Assistant Medical
DX: E11.65 Type 2 diabetes mellitus with hyperglycemia (principal); E66.01 Morbid (severe) obesity due to excess calories
CPT/HCPCS: 99204; G2211

== ENCOUNTER → 2024-03-27 13:42 | Outpatient (BNVA) | payer OTHER, SELFPAY | PROVIDERS: PCP Internal Medicine; Visit Provider Physician Assistant Medical | DX: E11.65 Type 2 diabetes mellitus with hyperglycemia (principal); E66.01 Morbid (severe) obesity due to excess calories; Z68.41 Body mass index [BMI] 40.0-44.9, adult | CPT/HCPCS: 82947; 83036; 99202 ==

== ENCOUNTER 2024-06-26 11:06 | Outpatient (AMB) | payer OTHER, SELFPAY ==
--- NOTE | 2024-06-26 11:13 | MHC.OFFVIS ---
Vital Signs 06/26/24 11:14 Height 5 ft 11 in Weight 293 lb 10.491 oz BMI 41.0 BP 132/84 Blood Pressure Location Rt brachial Position Sitting Pulse 88 Pulse Source Pulse Oximeter Intake Visit Reasons: Diabetes/LVM Intake Note: Patient present today for Type 2 DM Last Diabetic eye exam: approx 2 months Last Podiatry Visit: Does not see a Power Sweeper Operator Random Glucose: 446 mg/dl 11:32 pm, 393 MG/DL 12:52 pm HgA1C: >14.0% 06/26/24 Drink Box Mechanic Required: No Accompanied by: Self / Same As Patient Allergies No Known Allergies Allergy (Mild, Verified 06/26/24 11:25) NA HPI Comments Details: This is a 43-year-old male with a past medical history of hepatic steatosis, type 2 diabetes, hyperlipidemia, hypertension, [place] and obesity presenting for diabetic management. The patient was diagnosed in 2022. His grandfather had type II diabetes. His grandfather had diabetes. Patient says he stopped following his diet in May and stopped checking blood sugars because they were high. Hemoglobin a1c >14% today 06/26/24 up from 11.9%. Patient says his pharmacy never dispensed Mounjaro because the insurance did not cover it. We were not aware of the denial. POC 446 today. Ate 2 protein bars around 8 am. Denies hyperglycemia symptoms. Current medication regimen: Metformin 500 mg twice a day. Hypoglycemia symptoms: none Hyperglycemia symptoms: polydipsia, polyuria Eye exam: up to date Microvascular complications: none Macrovascular complications: none Hyperlipidemia: treated with simvastatin 10 mg. ROS: Constitutional: No unexplained weight loss, fever, chills, fatigue or night sweats. Eyes: No vision changes, no blurry vision or loss of vision Respiratory: No shortness of breath, cough or sputum production. Cardiovascular: No chest pain, chest pressure or chest discomfort. Gastrointestinal: No nausea, vomiting, diarrhea or abdominal pain. Neurologic: No headache, dizziness, syncope, numbness, tingling or weakness Skin: No rash Endocrine: No cold or heat intolerance. No polyuria or polydipsia. Physical exam: Constitutional: Alert, in no distress. Neck: Supple, Full range of motion. No lymphadenopathy. No palpable thyroid masses. Respiratory: Clear to auscultation. Cardiovascular: S1 S2 regular. No murmurs. Extremities: warm and well perfused, no edema PFSH Medical History Morbid obesity with BMI of 45.0-49.9, adult Obstructive sleep apnea Elevated blood pressure reading Smoker Surgical History (Reviewed 06/26/24 @ 11: by LUCI Garrison) History of cholecystectomy Family History (Reviewed 06/26/24 @ 11: by LUCI Garrison) Mother No problems noted. Father Pre-diabetes Paternal Grandfather Colon cancer Maternal Grandfather Heart attack Social History (Reviewed 06/26/24 @ 11: by LUCI Garrison) Housing: House Alcohol intake: current Alcohol intake frequency: a few times a week Patient Tobacco Use Status: Former Tobacco user Tobacco use type: Cigarette Cigarettes Per Day: 3 Years Smoked: quit 12/2021 cigar smoking e-Cigarette/Vaping Use: Never Used Second Hand Smoke Exposure: Yes service: No Current occupational status: employed Cognitive needs: No Hearing needs: No Vision needs: Yes Physical Exam Vital Signs: Last Vital Signs Pulse 88 06/26/24 11:14 BP 132/84 06/26/24 11:14 BMI result Body Mass Index 41.0 Office Meds Humalog U-100 Insulin 100 unit/mL subcutaneous solution Performing Provider: ALFONSO Hanna Performing Location[place] [facility] [place] Administered by: Maura Suárez RN on 06/26/24 11:51 Dose Route Admin Location Dispensed Lot Number Expiration Date [facility] Salvage Determiner 10 unit subcut right upper arm 0.1 mL [id number] 06/28/25 0447-2533-02 [employer] Comments: Pt with elevated blood sugar in office. Susi Moraes gave verbal order for 10 units of insulin lispro. Confirmed dosage of insulin once drawn up in insulin syringe with Adelina Moraes. Confirmed pt name and , 10 units given in right upper arm. Pt tolerated well. Pt is hydrating with water at this time. Will recheck per protocol. Results AMB Hemoglobin A1c AMB Hemoglobin A1c > 14.0 % Last Edit by LUCI Garrison on 06/26/24 12:00 Results Reviewed Results Reviewed: Laboratory Last Values Glucose (Clinic) 446 mg/dL (60-115) H* 06/26/24 11:32 Hgb A1c (Clinic) > 14.0 % (4.0-6.0) H 12/10/24 11:59 Laboratory Tests 05/10/23 11/23/23 11/23/23 10:59 09:29 09:30 Creatinine 0.83 Estimated GFR > 60 Hemoglobin A1c % 6.5 H 9.9 H Triglycerides 199 H Cholesterol 192 LDL Cholesterol, Calc 132 H HDL Cholesterol 21 L TSH 1.26 Free T4 1.34 Urine Creatinine 340.00 Urine Microalbumin 19.0 Microalb/Creat Ratio 5.5 Assessment & Plan Assessment & Plan (1) Type 2 diabetes mellitus with hyperglycemia: Code(s): E11.65 - Type 2 diabetes mellitus with hyperglycemia Category: Medical Qualifiers: Diabetes mellitus intermodal customer service insulin use: without intermodal customer service use Qualified Code(s): E11.65 - Type 2 diabetes mellitus with hyperglycemia (2) Morbid obesity: Code(s): E66.01 - Morbid (severe) obesity due to excess calories Category: Medical Plan In summary this is a 43-year-old male with uncontrolled type 2 diabetes with hyperglycemia today. Patient was treated with oral hydration and 10 units of humalog. After 1 hour patient remained asymptomatic of hyperglycemia, and his POC decreased to 393. Patient will increase metformin to 500 mg 2 tablets twice daily. Start Lantus 10 units nightly. Resubmit Stacy. Patient says it was denied because insurance said he was prediabetic when he is clearly a type 2 diabetic. I will send a letter of appeal if needed and let him we will need to submit a new prior authorization. I sent prescriptions for CGM sensors and reader. We will process prior authorization for this. It is medically necessary to monitor for hypo and hyperglycemia given severe hyperglycemia today and patient is starting insulin. Declines referral to consumer educator and dietitian. Discussed pathophysiology of Type II Diabetes Mellitus with the patient in detail.? I explained the intermodal customer service risks and complications associated with uncontrolled diabetes including nephropathy, neuropathy, peripheral vascular disease, retinopathy, increased risk of heart disease and stroke.? [employer]Tweetflow (handout given) Reminders: Watch all video tutorials, read all text messages and click on any features hidden messages to understand the aleksey better. Accurately enter your weight in pounds and height in feet and inches. Accurately?select what time you wake up and sleep and be careful to select am/pm properly. Save your username and password somewhere. The aleksey meets all HIPAA requirements. You must select shakes or bars or both and in the following?pages a specific brand. If you don't select a brand, the plan won't be accurate. You can use a regular?scale but buying the $23 Bluetooth Renpho scale from [employer] is recommended. For any issues you can hit technical support. If you take anti-diabetic and/or anti-hypertensive medications you must monitor blood sugars and blood pressure and alert the office if blood sugars are below 90 and blood pressures are below 110/60 so we can adjust medications if appropriate. The aleksey will send you automatic?reminders to do that if you enter in the aleksey that you have diabetes and/or hypertension and take medications for these conditions. Follow up the first week of July for Type II diabetes. Orders: Orders AMB Insulin Lispro Injection Practice Supplied Today E11.65 - Type 2 diabetes mellitus with hyperglycemia AMB Hemoglobin A1c Today E11.65 - Type 2 diabetes mellitus with hyperglycemia Medications: New insulin glargine (Lantus Solostar U-100 Insulin) 10 units (0.1 mL) subcut QPM 15 mL 3RF glucose (Dex4 Glucose) until symptoms of low blood sugar are controlled 16 grams (4 x 4 gram) PO Q15M PRN 10 tabs 4RF hypoglycemia blood-glucose sensor (FreeStyle Jeannie 3 Sensor device) apply new sensor every 14 days 2 ea 11RF pen needle, diabetic (BD Maria G 2nd Gen Pen Needle) As directed 100 ea 11RF blood-glucose meter,continuous (FreeStyle Jeannie 3 [place]) Use daily to monitor blood glucose levels continuously. 1 ea 0RF Refilled tirzepatide (Mounjaro) for 4 weeks 2.5 mg (0.5 mL) subcut QWEEK 2 mL 0RF Patient Instructions: Increase Metformin to 2 pills twice daily. Start Lantus 10 units at bedtime. We will process PA for Mounjaro and the sensors. If you experience low blood sugar, treat this by eating a chewable fruit candy like skittles or jelly beans (about 8 pieces), 4 ounces (1/2 cup) of fruit juice (not diet), 1 tablespoon of honey or 4 glucose tablets. If your blood sugar is under 50, take double the amount of one of the above. Recheck your blood sugar in 15 minutes. [email or web address] (handout given) Reminders: Watch all video tutorials, read all text messages and click on any features hidden messages to understand the aleksey better. Accurately enter your weight in pounds and height in feet and inches. Accurately?select what time you wake up and sleep and be careful to select am/pm properly. Save your username and password somewhere. The aleksey meets all HIPAA requirements. You must select shakes or bars or both and in the following?pages a specific brand. If you don't select a brand, the plan won't be accurate. You can use a regular?scale but buying the $23 [place] scale from [employer] is recommended. For any issues you can hit technical support. If you take anti-diabetic and/or anti-hypertensive medications you must monitor blood sugars and blood pressure and alert the office if blood sugars are below 90 and blood pressures are below 110/60 so we can adjust medications if appropriate. The aleksey will send you automatic?reminders to do that if you enter in the aleksey that you have diabetes and/or hypertension and take medications for these conditions. Coding Level of Care Code Est Pt Level 5 (71277) Complex EM visit Add On G2211 Diagnoses Type 2 diabetes mellitus with hyperglycemia, without long-term current use of insulin E11.65 Diabetes mellitus intermodal customer service insulin use: without intermodal customer service use Morbid obesity E66.01 Time Spent (min) 50 Comment Direct patient care, completing documentation
[2024-06-26 11:14] VITALS: BP 132/84; PULSE 88; BMI 41.0
[2024-06-26 11:37] LABS: Glucose, Whole Blood 446 mg/dL (60-115)
[2024-06-26 12:58] LABS: Glucose, Whole Blood 393 mg/dL (60-115)
== END 2024-06-26 12:55 | disposition home or self-care (01) ==
PROVIDERS: PCP Internal Medicine; Visit Provider Physician Assistant Medical
DX: E11.65 Type 2 diabetes mellitus with hyperglycemia (principal); E66.813 Obesity, class 3; Z68.41 Body mass index [BMI] 40.0-44.9, adult

== ENCOUNTER → 2024-06-26 11:06 | Outpatient (BNVA) | payer OTHER, SELFPAY | PROVIDERS: PCP Internal Medicine; Visit Provider Physician Assistant Medical | DX: E11.65 Type 2 diabetes mellitus with hyperglycemia (principal); E66.01 Morbid (severe) obesity due to excess calories; Z79.84 Long term (current) use of oral hypoglycemic drugs; Z68.41 Body mass index [BMI] 40.0-44.9, adult | CPT/HCPCS: 82947; 83036; 96372; 99212; J1815 ==

== ENCOUNTER 2024-07-10 09:33 | Outpatient (AMB) | payer OTHER, SELFPAY ==
--- NOTE | 2024-07-10 09:43 | MHC.PC.OV ---
Vital Signs 07/10/24 09:46 Height 5 ft 11 in Weight 286 lb BMI 39.9 BP 118/72 Blood Pressure Location Rt brachial Position Sitting Pulse 88 Pulse Source Pulse Oximeter Pulse Oximetry (%) 99 Oxygen Delivery Method Room Air Intake Visit Reasons: DM Intake Note: Patient here for a follow up DM Mortgage Manager Required: No Accompanied by: Self / Same As Patient Allergies No Known Allergies Allergy (Mild, Verified 07/10/24 09:45) NA Medication List - Last Reconciled 07/10/24 by Diane Babcock PA-C blood sugar diagnostic (FreeStyle Lite Strips) As directed check the BS QD blood-glucose meter (FreeStyle Lite Meter kit) As directed blood-glucose meter,continuous (FreeStyle Jeannie 3 [place]) Use daily to monitor blood glucose levels continuously. blood-glucose sensor (FreeStyle Jeannie 3 Sensor device) apply new sensor every 14 days [CPAP RESMED FULL FACE MASK MEDIUM 14 cm water humidified AIR As directed] dulaglutide (Trulicity) 0.75 mg (0.5 mL) subcut QWEEK glucose (Dex4 Glucose) 16 grams (4 x 4 gram) PO Q15M PRN hydrocortisone 2.5% (Proctosol HC) 1 appl TX BID-QID PRN insulin glargine (Lantus Solostar U-100 Insulin) 10 units (0.1 mL) subcut QPM lancets (FreeStyle Lancets) As directed check BS QD metformin 500 mg PO BID pen needle, diabetic (BD Maria G 2nd Gen Pen Needle) As directed sennosides-docusate sodium 8.6-50 mg (Senna Plus) 1 tab-cap PO BEDTIME simvastatin 10 mg PO BEDTIME Tobacco use date assessed: 11/24/23 Dental Screening Dental Screen Date: 11/24/23 HPI DM HPI Details 43-year-old morbidly obese male with diabetes mellitus controlled obstructive sleep apnea hypertension hypercholesterolemia last seen in November 2023 patient is here for follow-up on diabetes mellitus.? In review of the notes, [place] [facility] [place] plan to increase metformin to 500 mg 2 tablets twice daily and start Lantus and units nightly and resubmit Stacy.? Also plan to have Dexcom monitor. Patient has noted 40 lb weight loss since last visit in May states he has been working on eating healthy and staying active. He was unable to get Mounjaro due to insurance issues but has been taking Trulicity and we will follow up with endocrinology next month. He has no acute concerns today [facility] Medical History Morbid obesity with BMI of 45.0-49.9, adult Obstructive sleep apnea Elevated blood pressure reading Smoker Surgical History History of cholecystectomy Family History Mother No problems noted. Father Pre-diabetes Paternal Grandfather Colon cancer Maternal Grandfather Heart attack Social History Housing: House Alcohol intake: current Alcohol intake frequency: a few times a week Patient Tobacco Use Status: Former Tobacco user Tobacco use type: Cigarette Cigarettes Per Day: 3 Years Smoked: quit 12/2021 cigar smoking e-Cigarette/Vaping Use: Never Used Second Hand Smoke Exposure: Yes service: No Current occupational status: employed Current occupational exposures/hazards: No Cognitive needs: No Hearing needs: No Vision needs: Yes Questionnaire PHQ-9 Over the last 2 weeks, how often have you been bothered by any of the following problems? 1. Little interest or pleasure in doing things: not at all 2. Feeling down, depressed, or hopeless: not at all 3. Trouble falling or staying asleep, or sleeping too much: not at all 4. Feeling tired or having little energy: not at all 5. Poor appetite or overeating: not at all 6. Feeling bad about yourself - or that you are a failure or have let yourself or your family down: not at all 7. Trouble concentrating on things, such as reading the newspaper or watching television: not at all 8. Moving or speaking so slowly that other people could have noticed. Or the opposite - being so fidgety or restless that you have been moving around a lot more than usual: not at all 9. Thoughts that you would be better off or of hurting yourself in some way: not at all Total score: 0 Depression Screening Interpretation: Negative Depression Screening Done: Yes Source: Developed by Drs. Alok L. Maryann Ortez Kurt Kroenke and colleagues, with an educational nehemias from [employer]. Thrive Questionnaire Date Thrive assessed: 07/10/24 I am a: Patient What is your living situation today?: I have a steady place to live Within the past 12 months, did the food you bought not last and you didn't have the money to get more?: Never true Within the past 12 months, did you worry whether your food would run out before you got money to buy more?: Never true Do you have trouble paying for medicines?: No Do you have trouble getting transportation to medical appointments?: No Do you have trouble paying your heating and electricity bill?: No Do you have trouble taking care of your child, family member or friend?: No Do you have trouble with day-to-day activities such as bathing, preparing meals, shopping, managing finances, etc.?: No Are you currently unemployed and looking for a job?: No Are you interested in more education?: No Please select the resources that you would like help with: None Currently or been in a relationship where the following occur: No concerns reported THRIVE Score: 0 AUDIT C Alcohol Use Questionnaire (AUDIT-C) 1. How often do you have a drink containing alcohol?: Monthly or less 2. How many drinks containing alcohol do you have on a typical day when you are drinking?: 3 or 4 3. How often do you have six or more drinks on one occasion?: Less than monthly Total Score: 3 ULI-7 AMB Questionnaire ULI-7 Date ULI - 7 assessed: 07/10/24 Feeling nervous, anxious, or on edge: 0 = Not at all Not being able to stop or control worryin = Not at all Worrying too much about different things: 0 = Not at all Trouble relaxin = Not at all Being so restless that it is hard to sit still: 0 = Not at all Becoming easily annoyed or irritable: 0 = Not at all Feeling afraid as if something awful might happen: 0 = Not at all Total ULI-7 score (0-4 normal; 5-9 mild; 10-14 moderate; 15-21 severe): 0 Source: Developed by Maryann Walsh Kurt Kroenke and colleagues, with an educational nehemias from [employer]. Review of Systems Const Denies body aches, Denies chills, Denies fever(s), Denies headache(s) and Denies poor appetite Eyes Reports no additional complaints ENT Denies dizziness and Denies headache(s) Card Denies chest pain, Denies syncope, Denies lightheadedness and Denies dyspnea Resp Denies cough and Denies dyspnea GI Denies abdominal pain, Denies constipation, Denies diarrhea, Denies nausea and Denies vomiting Reports no additional complaints Musc Reports no additional complaints and Denies abnormal gait Skin/Breast Reports system reviewed and no additional complaints, except as documented Neuro Denies abnormal gait, Denies dizziness, Denies syncope and Denies headache(s) Psych Reports no additional complaints Physical exam (Primary Care) Vital Signs: Last Vital Signs Pulse 88 07/10/24 09:46 BP 118/72 07/10/24 09:46 Pulse Ox 99 07/10/24 09:46 Oxygen Delivery Method Room Air 07/10/24 09:46 BMI result Body Mass Index 39.9 Tobacco/Smoking Status: Tobacco use Status Tobacco use date assessed 11/24/23 07/10/24 09:51 Patient Tobacco Use Status Former Tobacco user 07/10/24 09:51 Tobacco use type Cigarette 07/10/24 09:51 e-Cigarette/Vaping Use Never Used 07/10/24 09:51 PHQ-9: PHQ-9 Score PHQ-9: Total score 0 07/10/24 10:06 Depression Screening Interpretation: Negative Thrive Assessment: Date of Thrive Assessment Date Thrive assessed 07/10/24 07/10/24 09:51 Currently or been in a relationship where the following occur: No concerns reported Const General: cooperative, healthy appearing, comfortable and no acute distress Orientation/consciousness: patient oriented x3 HENMT Head: Yes normocephalic Ears: hearing grossly normal bilaterally General nose exam: Normal external nose present Eyes General: appearance normal, both eyes and all related structures Conjunctivae: conjunctivae normal Neck Neck: Yes full ROM and Yes no lymphadenopathy Resp Effort & Inspection: normal respiratory effort Auscultation: clear to auscultation bilaterally, no crackles, no rales, no rhonchi and no wheezes Cardio Rate: regular rate Rhythm: regular rhythm Skin General skin exam: no rashes or lesions noted Neuro General: patient oriented x3 Gait exam (Neuro): Normal gait present Extrem General: Yes normal to inspection, Yes full ROM and No edema Psych Affect: normal affect Attitude: cooperative Insight: Good insight present (Psych) Judgement: Good judgement present (Psych) Office Procedures Flu Questionnaire Does the patient have a severe egg allergy?: No Immunizations Fluarix Triv [id number] (PF) 45 mcg (15 mcg x 3)/0.5 mL IM syringe Performing Provider: Diane Babcock PA-C [place] [facility] [place] [facility] Documented (not given) by: LUCI Fields on 07/10/24 09:53 Reason Not Given: Patient Refused Coding Level of Care Code Est Pt Level 3 (16284) Diagnoses Hepatic steatosis K76.0 Morbid obesity E66.01 Hypercholesterolemia E78.00 Hypertension I10 Type 2 diabetes mellitus with hyperglycemia, without long-term current use of insulin E11.65 Diabetes mellitus jail insulin use: without jail use Assessment & Plan Assessment & Plan (1) Hepatic steatosis: Comment: December 2023 Code(s): K76.0 - Fatty (change of) liver, not elsewhere classified Category: Medical Plan: Healthy diet and regular exercise is encouraged. (2) Morbid obesity: Code(s): E66.01 - Morbid (severe) obesity due to excess calories Category: Medical Plan: Healthy diet and regular exercise is encouraged. Noted 40 lb weight loss since last visit. Continue on Trulicity. (3) Hypercholesterolemia: Code(s): E78.00 - Pure hypercholesterolemia, unspecified Category: Medical Plan: Avoid foods that are high in cholesterol such as red meat, fried foods, eggs and baked goods. Triglyceride goal of less than 150 and LDL goal of less than 100. Continue on simvastatin 10 mg. Reminded about blood work. (4) Hypertension: Code(s): I10 - Essential (primary) hypertension Category: Medical Plan: Continue on current blood pressure medication. Avoid salt intake and encourage healthy diet and regular exercise. (5) Type 2 diabetes mellitus with hyperglycemia: Code(s): E11.65 - Type 2 diabetes mellitus with hyperglycemia Category: Medical Qualifiers: Diabetes mellitus adjunct faculty for medical terminology insulin use: without adjunct faculty for medical terminology use Qualified Code(s): E11.65 - Type 2 diabetes mellitus with hyperglycemia Plan: Decrease the amount of carbohydrates such as pasta, bread, rice, and potatoes and limit the amount of sweets. Although fruits are generally healthy they should be eaten in moderation as they are still high in sugar. Hemoglobin A1c goal of less than 7%. A1c endocrinology over 14% currently on insulin glargine, Trulicity and metformin. Continue to follow with endocrinology. Plan This note was constructed using voice recognition software. While every effort has been made to ensure accuracy and credit card analyst, still areas may have been included sometimes these areas may affect the content or meeting of the given symptoms. Total time spent caring for the patient today was 20 minutes. This includes time spent before the visit reviewing the chart, time spent during the visit, and time spent after the visit and documentation. Orders: Orders Influenza [id number] Immunization Today Z23 - Encounter for immunization
[2024-07-10 09:46] VITALS: BP 118/72; PULSE 88; O2SAT 99; BMI 39.9
== END 2024-07-10 10:12 | disposition home or self-care (01) ==
PROVIDERS: PCP Internal Medicine
DX: E11.65 Type 2 diabetes mellitus with hyperglycemia (principal); E66.01 Morbid (severe) obesity due to excess calories; Z68.39 Body mass index [BMI] 39.0-39.9, adult; K76.0 Fatty (change of) liver, not elsewhere classified; E78.00 Pure hypercholesterolemia, unspecified; I10 Essential (primary) hypertension

== ENCOUNTER → 2024-07-10 09:33 | Outpatient (BNVA) | payer OTHER, SELFPAY | PROVIDERS: PCP Internal Medicine | DX: K76.0 Fatty (change of) liver, not elsewhere classified (principal); E66.01 Morbid (severe) obesity due to excess calories; G47.33 Obstructive sleep apnea (adult) (pediatric); I10 Essential (primary) hypertension; E78.00 Pure hypercholesterolemia, unspecified; E11.65 Type 2 diabetes mellitus with hyperglycemia; Z28.21 Immunization not carried out because of patient refusal; Z68.39 Body mass index [BMI] 39.0-39.9, adult; Z79.84 Long term (current) use of oral hypoglycemic drugs | CPT/HCPCS: 96127; 99212 ==

== ENCOUNTER 2024-07-23 10:50 | Outpatient (REF) | payer OTHER, SELFPAY ==
[2024-07-23 12:52] LABS: Estimated Glomerular Filt Rate > 60
[2024-07-23 12:53] LABS: B Type Natriuretic Peptide 38 pg/mL (<100)
== END 2024-07-23 10:51 | disposition home or self-care (01) ==
LOC: HO.LAB 10:50
PROVIDERS: PCP Internal Medicine; Visit Provider Physician Assistant Medical
DX: E11.65 Type 2 diabetes mellitus with hyperglycemia (principal)
CPT/HCPCS: 36415; 82565; 83880

== ENCOUNTER 2024-07-24 10:46 | Outpatient (AMB) | payer OTHER, SELFPAY ==
--- NOTE | 2024-07-24 10:52 | A.OFFVIS_ITS ---
Vital Signs 07/24/24 10:54 Height 5 ft 11 in Weight 288 lb 9.361 oz BMI 40.2 BP 104/76 Blood Pressure Location Rt brachial Position Sitting Pulse 76 Pulse Source Pulse Oximeter Intake Visit Reasons: Type II diabetes Intake Note: Patient present today to follow up on Type 2 Diabetes Mellitus. 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 The patient was diagnosed in 2022. His grandfather had type II diabetes. Reviewed CGM data during the past 2 weeks: Target range 87% High 13% Very high 0% 0% hypoglycemia GMI 6.8% 25.5% variability Hyperglycemia occurs in the late evening. Patient is adhering to his diet again. Hemoglobin a1c >14% 06/26/24 up from 11.9%. Current medication regimen: Metformin 500 mg 2 tablets twice a day and Lantus 10 units nightly and Trulicity 0.75 mg weekly. He denies side effects on the regimen. Hypoglycemia symptoms: none Hyperglycemia symptoms: None Eye exam: up to date Microvascular complications: none Macrovascular complications: none Hyperlipidemia: treated with simvastatin 10 mg. ROS: Constitutional: No unexplained weight loss, fever, chills, fatigue or night sweats. Eyes: No vision changes, no blurry vision or loss of vision Respiratory: No shortness of breath, cough or sputum production. Cardiovascular: No chest pain, chest pressure or chest discomfort. Gastrointestinal: No nausea, vomiting, diarrhea or abdominal pain. Neurologic: No headache, dizziness, syncope, numbness, tingling or weakness Skin: No rash Endocrine: No cold or heat intolerance. No polyuria or polydipsia. Physical exam: Constitutional: Alert, in no distress. Neck: Supple, Full range of motion. No lymphadenopathy. No palpable thyroid masses. Respiratory: Clear to auscultation. Cardiovascular: S1 S2 regular. No murmurs. Extremities: warm and well perfused, no edema PFSH Medical History Morbid obesity with BMI of 45.0-49.9, adult Obstructive sleep apnea Elevated blood pressure reading Smoker Surgical History History of cholecystectomy Family History Mother No problems noted. Father Pre-diabetes Paternal Grandfather Colon cancer Maternal Grandfather Heart attack Social History Housing: House Alcohol intake: current Alcohol intake frequency: a few times a week Patient Tobacco Use Status: Former Tobacco user Tobacco use type: Cigarette Cigarettes Per Day: 3 Years Smoked: quit 12/2021 cigar smoking e-Cigarette/Vaping Use: Never Used Second Hand Smoke Exposure: Yes service: No Current occupational status: employed Current occupational exposures/hazards: No Cognitive needs: No Hearing needs: No Vision needs: Yes Physical Exam Vital Signs: Last Vital Signs Pulse 76 07/24/24 10:54 BP 104/76 07/24/24 10:54 BMI result Body Mass Index 40.2 Office Procedures Glucose Monitoring Details Details: See [facility] [address] - Glucose monitoring, continuous-physician I&R Procedure code (CPT) selection complete Results Reviewed Results Reviewed: Laboratory Last Values Glucose (Clinic) 113 mg/dL (60-115) 07/24/24 11:00 Assessment & Plan Assessment & Plan (1) Type 2 diabetes mellitus with hyperglycemia: Code(s): E11.65 - Type 2 diabetes mellitus with hyperglycemia Category: Medical Qualifiers: 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 GMI 6.8% now. He will decrease Lantus to 5 units for the next week, increase Trulicity to 1.5 mg this Tuesday when he is due for injection and stop Lantus at night. Continue metformin 500 mg 2 pills twice daily. Discussed pathophysiology of Type II Diabetes Mellitus with the patient in detail.? I explained the terminal press operator risks and complications associated with uncontrolled diabetes including nephropathy, neuropathy, peripheral vascular disease, retinopathy, increased risk of heart disease and stroke.? Follow up in 5 weeks for type 2 diabetes. Orders: Orders AMB Glucose Monitoring Today E11.9 - Type 2 diabetes mellitus without complications Medications: New dulaglutide (Trulicity) 1.5 mg (0.5 mL) subcut QWEEK 2 mL 3RF Discontinued dulaglutide (Trulicity) Discontinued Reason: Doctor's Order 0.75 mg (0.5 mL) subcut QWEEK 2 mL 0RF Patient Instructions: Decrease lantus to 5 units nightly This Tuesday take Trulicity 1.5 mg weekly and stop taking insulin same night Continue Metformin 500 mg 2 tabs twice daily Coding Level of Care Code Est Pt Level 4 (30476) Diagnoses Type 2 diabetes mellitus with hyperglycemia, without long-term current use of insulin E11.65 Diabetes mellitus terminal press operator insulin use: without terminal press operator use Morbid obesity E66.01 CPT Codes Details - CPT: 77483 - Glucose monitoring, continuous-physician I&R ([id number])
[2024-07-24 10:54] VITALS: BP 104/76; PULSE 76; BMI 40.2
[2024-07-24 11:04] LABS: Glucose, Whole Blood 113 mg/dL (60-115)
== END 2024-07-24 11:20 | disposition home or self-care (01) ==
PROVIDERS: PCP Internal Medicine; Visit Provider Physician Assistant Medical
DX: E11.65 Type 2 diabetes mellitus with hyperglycemia (principal); E66.01 Morbid (severe) obesity due to excess calories

== ENCOUNTER → 2024-07-24 10:46 | Outpatient (BNVA) | payer OTHER, SELFPAY | PROVIDERS: PCP Internal Medicine; Visit Provider Physician Assistant Medical | DX: E11.65 Type 2 diabetes mellitus with hyperglycemia (principal); E66.01 Morbid (severe) obesity due to excess calories; I10 Essential (primary) hypertension; E78.5 Hyperlipidemia, unspecified; G47.33 Obstructive sleep apnea (adult) (pediatric); Z79.84 Long term (current) use of oral hypoglycemic drugs; Z79.4 Long term (current) use of insulin; Z79.899 Other long term (current) drug therapy; Z68.41 Body mass index [BMI] 40.0-44.9, adult | CPT/HCPCS: 82947; 99212 ==

== ENCOUNTER 2024-08-28 11:10 | Outpatient (AMB) | payer OTHER, SELFPAY ==
--- NOTE | 2024-08-28 11:18 | MHC.OFFVIS ---
Vital Signs 08/28/24 11:21 Height 5 ft 11 in Weight 307 lb 5.19 oz BMI 42.9 BP 106/72 Blood Pressure Location Rt brachial Position Sitting Pulse 76 Pulse Source Pulse Oximeter Pulse Oximetry (%) 97 Oxygen Delivery Method Room Air Intake Visit Reasons: Type II diabetes Intake Note: Patient present today to follow up on Type 2 Diabetes Mellitus. Patient c/o of weight gain since being on Trulicity 1.5 mg. Last Diabetic Eye exam: Approx 3 months ago Last Podiatry Visit: Does not see a Sales Operations Lead Random Glucose: 144 mg/dl HgA1C: >14.0% 06/26/2024 Manager State Required: No Accompanied by: Self / Same As Patient Allergies No Known Allergies Allergy (Mild, Verified 08/28/24 11:22) NA HPI Comments Details: This is a 43-year-old male with a past medical history of hepatic steatosis, type 2 diabetes, hyperlipidemia, hypertension, ALLYSON and obesity presenting for diabetic management. The patient was diagnosed in 2022. His grandfather had type II diabetes. I reviewed his [place] 3 download CGM active 97% GMI 6.2% Average glucose 120 mg/dL Glucose variability 20.8% Very high 0% High 2% Target range 98% 0% hypoglycemia. He had rare hyperglycemia in the evening. Patient is following a low sugar diet. He cut out sugary drinks and candies. He is exercising daily. Hemoglobin a1c >14% 06/26/24 up from 11.9%. Current medication regimen: Metformin 500 mg 1 tablet twice a day and Trulicity 1.5 mg weekly. Patient is concerned about side effects on Trulicity including food cravings, sugar cravings and weight gain of 11 lb since starting the medicine and nausea. Prior medication: Lantus Hypoglycemia symptoms: He had 1 episode after working out. He thinks it happened because he did not eat after he worked out. He treated it with glucose tablets, and his sugar normalized. Hyperglycemia symptoms: None Eye exam: up to date Microvascular complications: none Macrovascular complications: none Hyperlipidemia: treated with simvastatin 10 mg. Fib 4 value 0.99 based on available data. ROS: Constitutional: No unexplained weight loss, fever, chills, fatigue or night sweats. Eyes: No vision changes, no blurry vision or loss of vision Respiratory: No shortness of breath, cough or sputum production. Cardiovascular: No chest pain, chest pressure or chest discomfort. Gastrointestinal: No nausea, vomiting, diarrhea or abdominal pain. Neurologic: No headache, dizziness, syncope, numbness, tingling or weakness Skin: No rash Endocrine: No cold or heat intolerance. No polyuria or polydipsia. Physical exam: Constitutional: Alert, in no distress. Neck: Supple, Full range of motion. No lymphadenopathy. No palpable thyroid masses. Respiratory: Clear to auscultation. Cardiovascular: S1 S2 regular. No murmurs. Extremities: warm and well perfused, no edema PFSH Medical History Morbid obesity with BMI of 45.0-49.9, adult Obstructive sleep apnea Elevated blood pressure reading Smoker Surgical History History of cholecystectomy Family History Mother No problems noted. Father Pre-diabetes Paternal Grandfather Colon cancer Maternal Grandfather Heart attack Social History Housing: House Alcohol intake: current Alcohol intake frequency: a few times a week Patient Tobacco Use Status: Former Tobacco user Tobacco use type: Cigarette Cigarettes Per Day: 3 Years Smoked: quit 12/2021 cigar smoking e-Cigarette/Vaping Use: Never Used Second Hand Smoke Exposure: Yes service: No Current occupational status: employed Current occupational exposures/hazards: No Cognitive needs: No Hearing needs: No Vision needs: Yes Physical Exam Vital Signs: Last Vital Signs Pulse 76 08/28/24 11:21 BP 106/72 08/28/24 11:21 Pulse Ox 97 08/28/24 11:21 Oxygen Delivery Method Room Air 08/28/24 11:21 BMI result Body Mass Index 42.9 Office Procedures Glucose Monitoring Details Details: See [facility] [address] - Glucose monitoring, continuous-physician I&R Procedure code (CPT) selection complete Results Reviewed Results Reviewed: Laboratory Last Values Glucose (Clinic) 144 mg/dL (60-115) H 08/28/24 11:28 Laboratory Tests 11/23/23 11/23/23 03/27/24 09:29 09:30 14:01 Plt Count 352 Creatinine Estimated GFR Glucose (Clinic) Hgb A1c (Clinic) 11.9 H B-Natriuretic Peptide TSH 1.26 Urine Creatinine 340.00 Urine Microalbumin 19.0 Microalb/Creat Ratio 5.5 06/26/24 07/23/24 08/28/24 11:59 11:00 11:28 Plt Count Creatinine 0.78 Estimated GFR > 60 Glucose (Clinic) 144 H Hgb A1c (Clinic) > 14.0 H B-Natriuretic Peptide 38 TSH Urine Creatinine Urine Microalbumin Microalb/Creat Ratio Assessment & Plan Assessment & Plan (1) Type 2 diabetes mellitus with hyperglycemia: Code(s): E11.65 - Type 2 diabetes mellitus with hyperglycemia Category: Medical Qualifiers: 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 GMI 6.2% now. Change metformin dose and formulation to extended release 750 mg daily. He has improved glycemic control on Trulicity however he is having side effects including nausea, weight gain, food cravings and sugar cravings. We will change him to Mounjaro. Advised patient it will require prior authorization. Discussed pathophysiology of Type II Diabetes Mellitus with the patient in detail.? I explained the usp risks and complications associated with uncontrolled diabetes including nephropathy, neuropathy, peripheral vascular disease, retinopathy, increased risk of heart disease and stroke.? If you experience low blood sugar, treat this by eating a chewable fruit candy like skittles or jelly beans (about 8 pieces), 4 ounces (1/2 cup) of fruit juice (not diet), 1 tablespoon of honey or 4 glucose tablets. If your blood sugar is under 55, take double the amount of one of the above. Recheck your blood sugar in [address] if you do not have a reliable way to monitor your blood sugar. Follow up in 5 weeks for type 2 diabetes. Orders: Orders AMB Glucose Monitoring Today E11.9 - Type 2 diabetes mellitus without complications Medications: New metformin ER 750 mg PO DAILY 90 tabs 0RF tirzepatide (Mounjaro) for 4 weeks 2.5 mg (0.5 mL) subcut QWEEK 2 mL 0RF Discontinued metformin Discontinued Reason: Doctor's Order 500 mg PO BID 180 tabs 1RF E11.65 - Type 2 diabetes mellitus with hyperglycemia Coding Level of Care Code Est Pt Level 4 (79998) Diagnoses Type 2 diabetes mellitus with hyperglycemia, without long-term current use of insulin E11.65 Diabetes mellitus usp insulin use: without usp use Morbid obesity E66.01 CPT Codes Details - CPT: 50254 - Glucose monitoring, continuous-physician I&R ([id number])
[2024-08-28 11:21] VITALS: BP 106/72; PULSE 76; O2SAT 97; BMI 42.9
[2024-08-28 11:32] LABS: Glucose, Whole Blood 144 mg/dL (60-115)
== END 2024-08-28 11:52 | disposition home or self-care (01) ==
PROVIDERS: PCP Internal Medicine; Visit Provider Physician Assistant Medical
DX: E11.65 Type 2 diabetes mellitus with hyperglycemia (principal); E66.01 Morbid (severe) obesity due to excess calories

== ENCOUNTER → 2024-08-28 11:10 | Outpatient (BNVA) | payer OTHER, SELFPAY | PROVIDERS: PCP Internal Medicine; Visit Provider Physician Assistant Medical | DX: E11.65 Type 2 diabetes mellitus with hyperglycemia (principal); E66.01 Morbid (severe) obesity due to excess calories; Z68.41 Body mass index [BMI] 40.0-44.9, adult; Z79.85 Long-term (current) use of injectable non-insulin antidiabetic drugs; Z79.84 Long term (current) use of oral hypoglycemic drugs | CPT/HCPCS: 82947; 99212 ==

== ENCOUNTER 2024-09-25 10:37 | Outpatient (AMB) | payer OTHER, SELFPAY ==
--- NOTE | 2024-09-25 10:40 | MHC.OFFVIS ---
Vital Signs 09/25/24 10:50 Height 5 ft 11 in Weight 311 lb 1.156 oz BMI 43.4 BP 100/66 Blood Pressure Location Rt brachial Position Sitting Pulse 80 Pulse Source Pulse Oximeter Pulse Oximetry (%) 98 Oxygen Delivery Method Room Air Intake Visit Reasons: Type II diabetes Intake Note: Patient present today to follow up on Type 2 Diabetes Mellitus. 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 The patient was diagnosed in 2022. His grandfather had type II diabetes. Reviewed [place] 3 data Average glucose 129 Glucose management indicator 6.4% Glucose variability 24.8% CGM active 93% Very high 0% High 7% Target range 93% 0% hypoglycemia He has been having some episodes of hypoglycemia since starting Mounjaro 4 weeks ago. He had 2-3 last week in the 60s treated with glucose tablets. 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 He is happy to report a decrease in food cravings since switching Trulicity to Mounjaro. Patient is following a low sugar diet. He cut out sugary drinks and candies. He is exercising Hemoglobin a1c >14% 06/26/24 up from 11.9%. Current medication regimen: Metformin extended release 750 mg daily and Mounjaro 2.5 mg weekly. Prior medication: Lantus and Trulicity Eye exam: up to date Microvascular complications: none Macrovascular complications: none Hyperlipidemia: treated with simvastatin 10 mg. Fib 4 value 0.99 based on available data. ROS: Constitutional: No unexplained weight loss, fever, chills, fatigue or night sweats. Eyes: No vision changes, no blurry vision or loss of vision Respiratory: No shortness of breath, cough or sputum production. Cardiovascular: No chest pain, chest pressure or chest discomfort. Gastrointestinal: No nausea, vomiting, diarrhea or abdominal pain. Neurologic: No headache, dizziness, syncope, numbness, tingling or weakness Skin: No rash Endocrine: No cold or heat intolerance. No polyuria or polydipsia. Physical exam: Constitutional: Alert, in no distress. Neck: Supple, Full range of motion. No lymphadenopathy. No palpable thyroid masses. Respiratory: Clear to auscultation. Cardiovascular: S1 S2 regular. No murmurs. Extremities: warm and well perfused, no edema PFSH Medical History Morbid obesity with BMI of 45.0-49.9, adult Obstructive sleep apnea Elevated blood pressure reading Smoker Surgical History History of cholecystectomy Family History Mother No problems noted. Father Pre-diabetes Paternal Grandfather Colon cancer Maternal Grandfather Heart attack Social History Housing: House Alcohol intake: current Alcohol intake frequency: a few times a week Patient Tobacco Use Status: Former Tobacco user Tobacco use type: Cigarette Cigarettes Per Day: 3 Years Smoked: quit 12/2021 cigar smoking e-Cigarette/Vaping Use: Never Used Second Hand Smoke Exposure: Yes service: No Current occupational status: employed Current occupational exposures/hazards: No Cognitive needs: No Hearing needs: No Vision needs: Yes Physical Exam Vital Signs: Last Vital Signs Pulse 80 09/25/24 10:50 BP 100/66 09/25/24 10:50 Pulse Ox 98 09/25/24 10:50 Oxygen Delivery Method Room Air 09/25/24 10:50 BMI result Body Mass Index 43.4 Office Procedures Glucose Monitoring Details Details: See [facility] [address] - Glucose monitoring, continuous-physician I&R Procedure code (CPT) selection complete Results AMB Hemoglobin A1c AMB Hemoglobin A1c 6.9 % Last Edit by LUCI Garrison on 09/25/24 11:11 Results Reviewed Results Reviewed: Laboratory Last Values Glucose (Clinic) 165 mg/dL (60-115) H 09/25/24 10:55 Laboratory Tests 11/23/23 11/23/23 03/27/24 09:29 09:30 14:01 Plt Count 352 Creatinine Estimated GFR Glucose (Clinic) Hgb A1c (Clinic) 11.9 H B-Natriuretic Peptide TSH 1.26 Urine Creatinine 340.00 Urine Microalbumin 19.0 Microalb/Creat Ratio 5.5 06/26/24 07/23/24 08/28/24 11:59 11:00 11:28 Plt Count Creatinine 0.78 Estimated GFR > 60 Glucose (Clinic) 144 H Hgb A1c (Clinic) > 14.0 H B-Natriuretic Peptide 38 TSH Urine Creatinine Urine Microalbumin Microalb/Creat Ratio Assessment & Plan Assessment & Plan (1) Type 2 diabetes mellitus with hyperglycemia: Code(s): E11.65 - Type 2 diabetes mellitus with hyperglycemia Category: Medical Qualifiers: Diabetes mellitus intermediate manager insulin use: without intermediate manager use Qualified Code(s): E11.65 - Type 2 diabetes mellitus with hyperglycemia (2) Morbid obesity: Code(s): E66.01 - Morbid (severe) obesity due to excess calories Category: Medical Plan In summary this is a 43-year-old male with substantial improvement in glycemic control since adjusting medications and adhering to diet over the past few weeks. GMI 6.4% now. He will try stopping metformin and increasing Mounjaro to 5 mg weekly. He would like to continue to titrate the medication for weight loss based on efficacy and tolerability. Side effects reviewed. Discussed pathophysiology of Type II Diabetes Mellitus with the patient in detail.? I explained the intermediate risks and complications associated with uncontrolled diabetes including nephropathy, neuropathy, peripheral vascular disease, retinopathy, increased risk of heart disease and stroke.? If you experience low blood sugar, treat this by eating a chewable fruit candy like skittles or jelly beans (about 8 pieces), 4 ounces (1/2 cup) of fruit juice (not diet), 1 tablespoon of honey or 4 glucose tablets. If your blood sugar is under 55, take double the amount of one of the above. Recheck your blood sugar in [address] if you do not have a reliable way to monitor your blood sugar. Follow up in October for medication review/type 2 diabetes. Orders: Orders AMB Glucose Monitoring Today E11.9 - Type 2 diabetes mellitus without complications AMB Hemoglobin A1c Today E11.65 - Type 2 diabetes mellitus with hyperglycemia Medications: New tirzepatide (Mounjaro) 5 mg (0.5 mL) subcut QWEEK 2 mL 3RF Discontinued tirzepatide (Mounjaro) for 4 weeks Discontinued Reason: Doctor's Order 2.5 mg (0.5 mL) subcut QWEEK 2 mL 0RF Coding Level of Care Code Est Pt Level 4 (12105) Diagnoses Type 2 diabetes mellitus with hyperglycemia, without long-term current use of insulin E11.65 Diabetes mellitus intermediate insulin use: without intermediate use Morbid obesity E66.01 CPT Codes Details - CPT: 44447 - Glucose monitoring, continuous-physician I&R ([id number])
[2024-09-25 10:50] VITALS: BP 100/66; PULSE 80; O2SAT 98; BMI 43.4
[2024-09-25 10:59] LABS: Glucose, Whole Blood 165 mg/dL (60-115)
== END 2024-09-25 11:23 | disposition home or self-care (01) ==
LOC: HO.ENCR 10:37
PROVIDERS: PCP Internal Medicine; Visit Provider Physician Assistant Medical
DX: E11.65 Type 2 diabetes mellitus with hyperglycemia (principal); E66.01 Morbid (severe) obesity due to excess calories

== ENCOUNTER → 2024-09-25 10:37 | Outpatient (BNVA) | payer OTHER, SELFPAY | PROVIDERS: PCP Internal Medicine; Visit Provider Physician Assistant Medical | DX: E11.65 Type 2 diabetes mellitus with hyperglycemia (principal); E66.01 Morbid (severe) obesity due to excess calories; Z68.41 Body mass index [BMI] 40.0-44.9, adult; Z79.84 Long term (current) use of oral hypoglycemic drugs | CPT/HCPCS: 82947; 83036; 99212 ==

== ENCOUNTER 2024-10-08 10:54 | Outpatient (AMB) | payer OTHER, SELFPAY ==
--- NOTE | 2024-10-08 10:59 | A.OFFPC_ITS ---
Vital Signs 10/08/24 11:02 Height 5 ft 11 in Weight 318 lb 4 oz BMI 44.4 BP 130/70 Blood Pressure Location Lt brachial Position Sitting Pulse 83 Pulse Source Pulse Oximeter Temp 97.1 F Temp Source Temporal Artery Scan Pulse Oximetry (%) 97 Oxygen Delivery Method Room Air Intake Visit Reasons: f/u HLD and DM Intake Note: Patient is here to follow up on HLD, DM. 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 blood-glucose sensor (FreeStyle Jeannie 3 Sensor device) apply new sensor every 14 days [CPAP RESMED FULL FACE MASK MEDIUM 14 cm water humidified AIR As directed] lancets (FreeStyle Lancets) As directed check BS QD metformin ER 750 mg PO DAILY pen needle, diabetic (BD Maria G 2nd Gen Pen Needle) As directed sennosides-docusate sodium 8.6-50 mg (Senna Plus) 1 tab-cap PO BEDTIME simvastatin 10 mg PO BEDTIME tirzepatide (Mounjaro) 5 mg (0.5 mL) subcut QWEEK Tobacco use date assessed: 10/08/24 Dental Screening Dental Screen Date: 10/08/24 Did you have a dental visit in the last 12 months?: No Did you have a dental problem in the last 6 months where you did not have access to dental care?: No Was dental information given to patient?: Patient has dentist HPI f/u HLD and DM HPI Details 43-year-old male with past medical histo ry of diabetes mellitus, obstructive sleep apnea, hypertension and hypercholesterolemia last seen 06/2024 coming in for follow up.?In review of the notes, patient was seen by endocrinology 09/25/2024 A1c was 6.9% metformin was discontinued and Mounjaro was increased to 5 mg weekly. The patient is a 43-year-old male presenting with follow-up for diabetes management. 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 Mounjaro dosage has been increased, with metformin paused to assess blood sugar levels. Previously on Trulicity, which caused cravings and weight gain. Has not had cholesterol labs since last year, indicating hypercholesterolemia is being monitored. [facility] Medical History Morbid obesity with BMI of 45.0-49.9, adult Obstructive sleep apnea Elevated blood pressure reading Smoker Surgical History History of cholecystectomy Family History Mother No problems noted. Father Pre-diabetes Paternal Grandfather Colon cancer Maternal Grandfather Heart attack Social History Housing: House Alcohol intake: current Alcohol intake frequency: a few times a week Patient Tobacco Use Status: Former Tobacco user Tobacco use type: Cigarette Cigarettes Per Day: 3 Years Smoked: quit 12/2021 cigar smoking e-Cigarette/Vaping Use: Never Used Second Hand Smoke Exposure: Yes service: No Current occupational status: employed Current occupational exposures/hazards: No Cognitive needs: No Hearing needs: No Vision needs: Yes Questionnaire PHQ-9 Over the last 2 weeks, how often have you been bothered by any of the following problems? 1. Little interest or pleasure in doing things: not at all 2. Feeling down, depressed, or hopeless: not at all 3. Trouble falling or staying asleep, or sleeping too much: not at all 4. Feeling tired or having little energy: not at all 5. Poor appetite or overeating: not at all 6. Feeling bad about yourself - or that you are a failure or have let yourself or your family down: not at all 7. Trouble concentrating on things, such as reading the newspaper or watching television: not at all 8. Moving or speaking so slowly that other people could have noticed. Or the opposite - being so fidgety or restless that you have been moving around a lot more than usual: not at all 9. Thoughts that you would be better off or of hurting yourself in some way: not at all Total score: 0 Depression Screening Interpretation: Negative Depression Screening Done: Yes Source: Developed by Maryann Walsh Kurt Kroenke and colleagues, with an educational nehemias from [employer]. Thrive Questionnaire Date Thrive assessed: 10/08/24 I am a: Patient What is your living situation today?: I have a steady place to live Within the past 12 months, did the food you bought not last and you didn't have the money to get more?: Never true Within the past 12 months, did you worry whether your food would run out before you got money to buy more?: Never true Do you have trouble paying for medicines?: No Do you have trouble getting transportation to medical appointments?: No Do you have trouble paying your heating and electricity bill?: No Do you have trouble taking care of your child, family member or friend?: No Do you have trouble with day-to-day activities such as bathing, preparing meals, shopping, managing finances, etc.?: No Are you currently unemployed and looking for a job?: No Are you interested in more education?: No Please select the resources that you would like help with: None Currently or been in a relationship where the following occur: No concerns reported THRIVE Score: 0 AUDIT C Alcohol Use Questionnaire (AUDIT-C) 1. How often do you have a drink containing alcohol?: Monthly or less 2. How many drinks containing alcohol do you have on a typical day when you are drinking?: 1 or 2 Total Score: 1 ULI-7 AMB Questionnaire ULI-7 Date ULI - 7 assessed: 10/08/24 Feeling nervous, anxious, or on edge: 0 = Not at all Not being able to stop or control worryin = Not at all Worrying too much about different things: 0 = Not at all Trouble relaxin = Not at all Being so restless that it is hard to sit still: 0 = Not at all Becoming easily annoyed or irritable: 0 = Not at all Feeling afraid as if something awful might happen: 0 = Not at all Total ULI-7 score (0-4 normal; 5-9 mild; 10-14 moderate; 15-21 severe): 0 Source: Developed by Maryann Walsh Kurt Kroenke and colleagues, with an educational nehemias from [employer]. Review of Systems Const Denies body aches, Denies chills, Denies fever(s), Denies headache(s) and Denies poor appetite Eyes Reports no additional complaints ENT Denies dizziness and Denies headache(s) Card Denies chest pain, Denies lightheadedness and Denies dyspnea Resp Denies cough and Denies dyspnea GI Denies abdominal pain, Denies constipation, Denies diarrhea, Denies nausea and Denies vomiting Reports no additional complaints Musc Reports no additional complaints and Denies abnormal gait Skin/Breast Reports system reviewed and no additional complaints, except as documented Neuro Denies abnormal gait, Denies dizziness and Denies headache(s) Psych Reports no additional complaints Physical exam (Primary Care) Vital Signs: Last Vital Signs Temp 97.1 F 10/08/24 11:02 Pulse 83 10/08/24 11:02 BP 130/70 10/08/24 11:02 Pulse Ox 97 10/08/24 11:02 Oxygen Delivery Method Room Air 10/08/24 11:02 BMI result Body Mass Index 44.4 Tobacco/Smoking Status: Tobacco use Status Tobacco use date assessed 10/08/24 10/08/24 11:07 Patient Tobacco Use Status Former Tobacco user 10/08/24 11:07 Tobacco use type Cigarette 10/08/24 11:07 e-Cigarette/Vaping Use Never Used 10/08/24 11:07 PHQ-9: PHQ-9 Score PHQ-9: Total score 0 10/08/24 11:07 Depression Screening Interpretation: Negative Thrive Assessment: Date of Thrive Assessment Date Thrive assessed 10/08/24 10/08/24 11:07 Currently or been in a relationship where the following occur: No concerns reported Const General: cooperative, healthy appearing, comfortable and no acute distress Orientation/consciousness: patient oriented x3 HENMT Head: Yes normocephalic Ears: hearing grossly normal bilaterally General nose exam: Normal external nose present Eyes General: appearance normal, both eyes and all related structures Conjunctivae: conjunctivae normal Neck Neck: Yes full ROM and Yes no lymphadenopathy Resp Effort & Inspection: normal respiratory effort Auscultation: clear to auscultation bilaterally, no crackles, no rales, no rhonchi and no wheezes Cardio Rate: regular rate Rhythm: regular rhythm Skin General skin exam: no rashes or lesions noted Neuro General: patient oriented x3 Gait exam (Neuro): Normal gait present Extrem General: Yes normal to inspection, Yes full ROM and No edema Psych Affect: normal affect Attitude: cooperative Insight: Good insight present (Psych) Judgement: Good judgement present (Psych) Coding Level of Care Code Est Pt Level 3 (22006) Diagnoses Hepatic steatosis K76.0 Morbid obesity E66.01 Hypercholesterolemia E78.00 Hypertension I10 Type 2 diabetes mellitus with hyperglycemia, without long-term current use of insulin E11.65 Diabetes mellitus intermediate insulin use: without watermelon inspector use Assessment & Plan Assessment & Plan (1) Hepatic steatosis: Comment: December 2023 Code(s): K76.0 - Fatty (change of) liver, not elsewhere classified Category: Medical Plan: Healthy diet and regular exercise is encouraged. (2) Morbid obesity: Code(s): E66.01 - Morbid (severe) obesity due to excess calories Category: Medical Plan: Healthy diet and regular exercise is encouraged. (3) Hypercholesterolemia: Code(s): E78.00 - Pure hypercholesterolemia, unspecified Category: Medical Plan: Avoid foods that are high in cholesterol such as red meat, fried foods, eggs and baked goods. Triglyceride goal of less than 150 and LDL goal of less than 100. Continue on Simvastatin 10. Reminded patient about blood work and updated lab orders. (4) Hypertension: Code(s): I10 - Essential (primary) hypertension Category: Medical Plan: Continue on current blood pressure medication. Avoid salt intake and encourage healthy diet and regular exercise. (5) Type 2 diabetes mellitus with hyperglycemia: Code(s): E11.65 - Type 2 diabetes mellitus with hyperglycemia Category: Medical Qualifiers: Diabetes mellitus intermediate insulin use: without watermelon inspector use Qualified Code(s): E11.65 - Type 2 diabetes mellitus with hyperglycemia Plan: Decrease the amount of carbohydrates such as pasta, bread, rice, and potatoes and limit the amount of sweets. Although fruits are generally healthy they should be eaten in moderation as they are still high in sugar. Hemoglobin A1c goal of less than 7% continue on Mounjaro last A1c 6.9%. Plan We addressed the patient's Type 2 Diabetes Mellitus management, acknowledging significant A1c improvement and the current treatment plan involving Mounjaro. Given his response to medication changes, we agreed on close monitoring of glucose levels and weight management strategies, anticipating increased efficacy with higher Mounjaro doses. The patient's concerns regarding previous medication side effects were acknowledged and the current regimen was reviewed. We updated the orders for his cholesterol panel, instructing fasting before the lab tests. The patient will continue with his exercise routine, as discussed, accommodating his schedule and weather constraints to enhance weight loss and overall health. Regular monitoring of constipation and tailored dietary adjustments were encouraged to manage gastrointestinal symptoms. This note was constructed using voice recognition software. While every effort has been made to ensure accuracy and hand meat salter, still areas may have been i ncluded sometimes these areas may affect the content or meeting of the given symptoms. Total time spent caring for the patient today was 20 minutes. This includes time spent before the visit reviewing the chart, time spent during the visit, and time spent after the visit and documentation. Patient was informed and verbally consented to the use of an ambient scribe for clinic note documentation during this visit. Orders: Orders Complete Blood Count Auto Diff Today D64.9 - Anemia, unspecified Hepatitis B,C Profile Today R79.89 - Other specified abnormal findings of blood chemistry IRON PROFILE Today D64.9 - Anemia, unspecified Lipid Panel Today E78.00 - Pure hypercholesterolemia, unspecified, R79.89 - Other specified abnormal findings of blood chemistry Vitamin B12 and Folate Today D64.9 - Anemia, unspecified Comprehensive Met. Panel Today R79.89 - Other specified abnormal findings of blood chemistry Creatinine Urine Today E11.65 - Type 2 diabetes mellitus with hyperglycemia Ferritin Today D64.9 - Anemia, unspecified
[2024-10-08 11:02] VITALS: BP 130/70; PULSE 83; TEMP 36.2; O2SAT 97; BMI 44.4
== END 2024-10-08 11:32 | disposition home or self-care (01) ==
LOC: HO.HMCH 10:55
PROVIDERS: PCP Internal Medicine
DX: E11.65 Type 2 diabetes mellitus with hyperglycemia (principal); E66.01 Morbid (severe) obesity due to excess calories; Z68.41 Body mass index [BMI] 40.0-44.9, adult; K76.0 Fatty (change of) liver, not elsewhere classified; E78.00 Pure hypercholesterolemia, unspecified; I10 Essential (primary) hypertension

== ENCOUNTER → 2024-10-08 10:54 | Outpatient (BNVA) | payer OTHER, SELFPAY | PROVIDERS: PCP Internal Medicine | DX: K76.0 Fatty (change of) liver, not elsewhere classified (principal); E66.01 Morbid (severe) obesity due to excess calories; E78.00 Pure hypercholesterolemia, unspecified; I10 Essential (primary) hypertension; E11.65 Type 2 diabetes mellitus with hyperglycemia | CPT/HCPCS: 99212 ==

== ENCOUNTER 2024-11-13 10:29 | Outpatient (AMB) | payer OTHER, SELFPAY ==
--- NOTE | 2024-11-13 10:31 | A.OFFVIS_ITS ---
Vital Signs 11/13/24 10:33 Height 5 ft 11 in Weight 318 lb 12.615 oz BMI 44.5 BP 104/74 Blood Pressure Location Rt brachial Position Sitting Pulse 92 Pulse Source Pulse Oximeter Pulse Oximetry (%) 98 Oxygen Delivery Method Room Air Intake Visit Reasons: Type II diabetes Intake Note: Patient present today to follow up on Type 2 Diabetes Mellitus. Last Diabetic Eye exam: Approx 5 months ago Last Podiatry Visit: Does not see a Winding Rack Operator Random Glucose: 136 mg/dl HgA1C: 6.9% 09/25/2024 Md Psychiatry Required: No Accompanied by: Self / Same As Patient Allergies No Known Allergies Allergy (Mild, Verified 11/13/24 10:33) NA HPI Comments Details: This is a 44-year-old male with a past medical history of hepatic steatosis, type 2 diabetes, hyperlipidemia, hypertension, [place] and obesity presenting for diabetic management. The patient was diagnosed in 2022. His grandfather had type II diabetes. Reviewed [employer] 3+ data CGM active 97% Average glucose 138 G ME 6.6% Glucose variability 20.5% Very high 0% High 10% Target range 90% 0% hypoglycemia. The patient has normal glucose readings throughout the 24 hour period in general with occasional hypoglycemia in the afternoon, evening and morning. He does tell me that he was recently celebrating his birthday, and he was eating and drinking more alcohol than typically for the last couple of weeks. He is happy to report a decrease in food cravings since switching Trulicity to Mounjaro. He denies side effects on the medication. Patient is following a low sugar diet. He cut out sugary drinks and candies. He is exercising Hemoglobin A1c 6.9% 09/25/2024. Current medication regimen: Mounjaro 5 mg weekly. Prior medication: Lantus discontinued because it was no longer needed. Trulicity discontinued due to being ineffective and side effects. Metformin di scontinued due to no longer being needed. Eye exam: up to date Microvascular complications: none Macrovascular complications: none Hyperlipidemia: treated with simvastatin 10 mg. Fib 4 value 0.99 based on available data. ROS: Constitutional: No unexplained weight loss, fever, chills, fatigue or night sweats. Eyes: No vision changes, no blurry vision or loss of vision Respiratory: No shortness of breath, cough or sputum production. Cardiovascular: No chest pain, chest pressure or chest discomfort. Gastrointestinal: No nausea, vomiting, diarrhea or abdominal pain. Neurologic: No headache, dizziness, syncope, numbness, tingling or weakness Skin: No rash Endocrine: No cold or heat intolerance. No polyuria or polydipsia. Physical exam: Constitutional: Alert, in no distress. Neck: Supple, Full range of motion. No lymphadenopathy. No palpable thyroid masses. Respiratory: Clear to auscultation. Cardiovascular: S1 S2 regular. No murmurs. Extremities: warm and well perfused, no edema PFSH Medical History Morbid obesity with BMI of 45.0-49.9, adult Obstructive sleep apnea Elevated blood pressure reading Smoker Surgical History History of cholecystectomy Family History Mother No problems noted. Father Pre-diabetes Paternal Grandfather Colon cancer Maternal Grandfather Heart attack Social History Housing: House Alcohol intake: current Alcohol intake frequency: a few times a week Patient Tobacco Use Status: Former Tobacco user Tobacco use type: Cigarette Cigarettes Per Day: 3 Years Smoked: quit 12/2021 cigar smoking e-Cigarette/Vaping Use: Never Used Second Hand Smoke Exposure: Yes service: No Current occupational status: employed Current occupational exposures/hazards: No Cognitive needs: No Hearing needs: No Vision needs: Yes Physical Exam Vital Signs: Last Vital Signs Pulse 92 11/13/24 10:33 BP 104/74 11/13/24 10:33 Pulse Ox 98 11/13/24 10:33 Oxygen Delivery Method Room Air 11/13/24 10:33 BMI result Body Mass Index 44.5 Office Procedures Glucose Monitoring Details Details: see [facility] [address] - Glucose monitoring, continuous-physician I&R Procedure code (CPT) selection complete Results Reviewed Results Reviewed: Laboratory Tests 11/23/23 11/23/23 03/27/24 09:29 09:30 14:01 Plt Count 352 Creatinine Estimated GFR Glucose (Clinic) Hgb A1c (Clinic) 11.9 H B-Natriuretic Peptide TSH 1.26 Urine Creatinine 340.00 Urine Microalbumin 19.0 Microalb/Creat Ratio 5.5 06/26/24 07/23/24 08/28/24 11:59 11:00 11:28 Plt Count Creatinine 0.78 Estimated GFR > 60 Glucose (Clinic) 144 H Hgb A1c (Clinic) > 14.0 H B-Natriuretic Peptide 38 TSH Urine Creatinine Urine Microalbumin Microalb/Creat Ratio Assessment & Plan Assessment & Plan (1) Type 2 diabetes mellitus with hyperglycemia: Code(s): E11.65 - Type 2 diabetes mellitus with hyperglycemia Category: Medical Qualifiers: Diabetes mellitus developmental training counselor insulin use: without residential use Qualified Code(s): E11.65 - Type 2 diabetes mellitus with hyperglycemia (2) Morbid obesity: Code(s): E66.01 - Morbid (severe) obesity due to excess calories Category: Medical Plan In summary this is a 44-year-old male with controlled type 2 diabetes. Increase Mounjaro to 7.5 mg weekly to promote weight loss. Continue lifestyle modifications. Reviewed side effects. Patient thinks he does not want to increase after this dose, but if it is ineffective and needs to be titrated he can call the office, and I will submit the dose for Mounjaro 10 mg after 4 week s. Discussed pathophysiology of Type II Diabetes Mellitus with the patient in detail.? I explained the developmental training counselor risks and complications associated with uncontrolled diabetes including nephropathy, neuropathy, peripheral vascular disease, retinopathy, increased risk of heart disease and stroke.? If you experience low blood sugar, treat this by eating a chewable fruit candy like skittles or jelly beans (about 8 pieces), 4 ounces (1/2 cup) of fruit juice (not diet), 1 tablespoon of honey or 4 glucose tablets. If your blood sugar is under 55, take double the amount of one of the above. Recheck your blood sugar in [address] if you do not have a reliable way to monitor your blood sugar. Follow up in 3 months for type 2 diabetes. Orders: Orders AMB Glucose Monitoring Today E11.9 - Type 2 diabetes mellitus without complications Medications: New tirzepatide (Mounjaro) 7.5 mg (0.5 mL) subcut QWEEK 2 mL 3RF Discontinued tirzepatide (Mounjaro) Discontinued Reason: Doctor's Order 5 mg (0.5 mL) subcut QWEEK 2 mL 3RF Coding Level of Care Code Est Pt Level 4 (91659) Diagnoses Type 2 diabetes mellitus with hyperglycemia, without long-term current use of insulin E11.65 Diabetes mellitus residential insulin use: without residential use Morbid obesity E66.01 CPT Codes Details - CPT: 15153 - Glucose monitoring, continuous-physician I&R ([id number])
[2024-11-13 10:33] VITALS: BP 104/74; PULSE 92; O2SAT 98; BMI 44.5
[2024-11-13 10:42] LABS: Glucose, Whole Blood 136 mg/dL (60-115)
== END 2024-11-13 10:52 | disposition home or self-care (01) ==
LOC: HO.ENCR 10:29
PROVIDERS: PCP Internal Medicine; Visit Provider Physician Assistant Medical
DX: E11.65 Type 2 diabetes mellitus with hyperglycemia (principal); E66.01 Morbid (severe) obesity due to excess calories

== ENCOUNTER → 2024-11-13 10:29 | Outpatient (BNVA) | payer OTHER, SELFPAY | PROVIDERS: PCP Internal Medicine; Visit Provider Physician Assistant Medical | DX: E11.65 Type 2 diabetes mellitus with hyperglycemia (principal); E66.01 Morbid (severe) obesity due to excess calories; E78.5 Hyperlipidemia, unspecified; I10 Essential (primary) hypertension; G47.33 Obstructive sleep apnea (adult) (pediatric); Z68.41 Body mass index [BMI] 40.0-44.9, adult; Z99.89 Dependence on other enabling machines and devices | CPT/HCPCS: 82947; 99212 ==

== ENCOUNTER 2025-03-21 09:43 | Outpatient (REF) | payer OTHER, SELFPAY ==
[2025-03-21 10:02] LABS: MANUAL DIFF FLAG NO
[2025-03-21 10:31] LABS: Hematocrit 46.1 % (42.0-52.0); Hemoglobin 15.1 g/dl (14.0-18.0); Imm Gran Abs Auto 0.03 X10*3/uL (0.00-0.03); Imm Gran Pct Auto 0.4 % (0.0-0.4); Lymphocytes Absolute Auto 2.0 X10*3/uL (1.2-4.9); Mean Corpuscular HGB Conc 32.8 g/dl (31.0-36.0); Mean Corpuscular Hemoglobin 27.5 pg (27.0-33.0); Mean Corpuscular Volume 83.8 fL (80.0-98.0); NRBC Abs Auto 0.000 X10*3/uL (0.0-0.012); NRBC Pct Auto 0.0 /100WBC (0.0-0.2); Platelet Count 331 X10*3/uL (160-400); Red Blood Count 5.50 X10*6/uL (4.60-5.80); White Blood Count 7.9 X10*3/uL (4.8-10.8)
[2025-03-21 11:09] LABS: Alanine Aminotransferase 46 U/L (0-40); Albumin Level 4.3 g/dL (3.5-5.0); Alkaline Phosphatase 102 U/L (39-117); Anion Gap 10 (12-20); Aspartate Amino Transferase 41 U/L (5-37); Blood Urea Nitrogen 9 mg/dL (9-16); Calcium 9.7 mg/dL (8.4-10.2); Carbon Dioxide 26 mmol/L (22-29); Chloride 105 mmol/L (96-108); Cholesterol 166 mg/dL (<200); Estimated Glomerular Filt Rate > 60; HDL Cholesterol 27 mg/dL (>40); Iron 45 mcg/dL (45-160); Percent Iron Saturation 16 % (15-50); Potassium 4.0 mmol/L (3.3-5.1); Sodium 137 mmol/L (135-145); Total Iron Binding Capacity 290 mcg/dL (228-428); Total Protein 7.8 g/dL (6.5-8.0); Triglycerides 164 mg/dL (<150); Unsaturated Iron Binding 245 ug/dL
[2025-03-21 11:26] LABS: Ferritin 137 ng/mL (20-250)
[2025-03-21 11:27] LABS: HBS Num1 24.96 mIU/mL (0-7.99); HBc Num1 0.28 S/CO (0.00-0.79); ~HepC Num1 0.24 S/CO (0.00-0.79); ~Hepatitis B Surface Antibody REACTIVE (Nonreactive); ~Hepatitis C Antibody Nonreactive (Nonreactive)
[2025-03-21 11:32] LABS: Folate 8.5 ng/mL (> or = 4.0); Vitamin B12 655 pg/mL (200-900)
[2025-03-21 13:43] LABS: HBsAGNum1 0.35 S/CO (0.00-0.99); Hepatitis B Surface Antigen Negative (Negative)
== END 2025-03-21 09:44 | disposition home or self-care (01) ==
LOC: HO.LAB 09:43
PROVIDERS: PCP Internal Medicine
DX: Z11.59 Encounter for screening for other viral diseases (principal); E11.65 Type 2 diabetes mellitus with hyperglycemia; E78.00 Pure hypercholesterolemia, unspecified; D64.9 Anemia, unspecified; R79.89 Other specified abnormal findings of blood chemistry
CPT/HCPCS: 36415; 80053; 80061; 82570; 82607; 82728; 82746; 83540; 85025; 86704; 86706; 86803; 87340

== ENCOUNTER 2025-03-22 11:23 | Outpatient (AMB) | payer OTHER, SELFPAY ==
--- NOTE | 2025-03-22 11:26 | A.OFFVIS_ITS ---
Vital Signs 03/22/25 11:29 Height 5 ft 11 in Weight 324 lb 1.272 oz BMI 45.2 BP 114/68 Blood Pressure Location Rt brachial Position Sitting Pulse 90 Pulse Source Pulse Oximeter Pulse Oximetry (%) 97 Oxygen Delivery Method Room Air Intake Visit Reasons: Type II diabetes Intake Note: Patient present today to follow up on Type 2 Diabetes Mellitus. 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 [CPAP RESMED FULL FACE MASK MEDIUM 14 cm water humidified AIR As directed] lancets (FreeStyle Lancets) As directed check BS QD pen needle, diabetic (BD Maria G 2nd Gen Pen Needle) As directed sennosides-docusate sodium 8.6-50 mg (Senna Plus) 1 tab-cap PO BEDTIME simvastatin 10 mg PO BEDTIME tirzepatide (Mounjaro) 10 mg (0.5 mL) subcut QWEEK 84 days HPI Comments Details: This is a 44-year-old male with a past medical history of hepatic steatosis, type 2 diabetes, hyperlipidemia, hypertension, [place] and obesity presenting for diabetic management. The patient was diagnosed in 2022. His grandfather had type II diabetes. Reviewed CGM 93% active 7.9% G NC 25.1% variability Very high 14% High 43% Target range 43% Hypoglycemia 0% He has hyperglycemia during the day and evening with improvement in blood sugars overnight. He admits to dietary indiscretion since his last visit attributed to stress. Hemoglobin A1c is 8.4% today. Current medication regimen: Mounjaro 7.5 mg weekly. Prior medication: Lantus discontinued because it was no longer needed. Trulicity discontinued due to being ineffective and side effects. Metformin discontinued due to no longer being needed. Eye exam: up to date Microvascular complications: none Macrovascular complications: none Hyperlipidemia: treated with simvastatin 10 mg. LFTs are elevated. Patient had a liver ultrasound with possible hepatic steatosis in November 2023. ROS: Constitutional: No unexplained weight loss, fever, chills, fatigue or night sweats. Eyes: No vision changes, no blurry vision or loss of vision Respiratory: No shortness of breath, cough or sputum production. Cardiovascular: No chest pain, chest pressure or chest discomfort. Gastrointestinal: No nausea, vomiting, diarrhea or abdominal pain. Neurologic: No headache, dizziness, syncope, numbness, tingling or weakness Endocrine: No cold or heat intolerance. No polyuria or polydipsia. Physical exam: Constitutional: Alert, in no distress. Neck: Supple, Full range of motion. No lymphadenopathy. No palpable thyroid masses. Respiratory: Clear to auscultation. Cardiovascular: S1 S2 regular. No murmurs. Extremities: warm and well perfused, no edema PFSH Medical History Morbid obesity with BMI of 45.0-49.9, adult Obstructive sleep apnea Elevated blood pressure reading Smoker Surgical History History of cholecystectomy Family History Mother No problems noted. Father Pre-diabetes Paternal Grandfather Colon cancer Maternal Grandfather Heart attack Social History Housing: House Alcohol intake: current Alcohol intake frequency: a few times a week Patient Tobacco Use Status: Former Tobacco user Tobacco use type: Cigarette Cigarettes Per Day: 3 Years Smoked: quit 12/2021 cigar smoking e-Cigarette/Vaping Use: Never Used Second Hand Smoke Exposure: Yes service: No Current occupational status: employed Current occupational exposures/hazards: No Cognitive needs: No Hearing needs: No Vision needs: Yes Physical Exam Vital Signs: Last Vital Signs Pulse 90 03/22/25 11:29 BP 114/68 03/22/25 11:29 Pulse Ox 97 03/22/25 11:29 Oxygen Delivery Method Room Air 03/22/25 11:29 BMI result Body Mass Index 45.2 Office Procedures Glucose Monitoring Details Details: See [facility] [address] - Glucose monitoring, continuous-physician I&R Procedure code (CPT) selection complete Results AMB Hemoglobin A1c AMB Hemoglobin A1c 8.4 % Last Edit by LUCI Garrison on 03/22/25 11:44 Results Reviewed Results Reviewed: Laboratory Last Values Glucose (Clinic) 191 mg/dL (60-115) H 03/22/25 11:35 Laboratory Tests 11/23/23 06/26/24 07/23/24 09:30 11:59 11:00 Plt Count Creatinine Estimated GFR Hgb A1c (Clinic) > 14.0 H AST ALT B-Natriuretic Peptide 38 Triglycerides Cholesterol LDL Cholesterol, Calc HDL Cholesterol Urine Creatinine 340.00 Urine Microalbumin 19.0 Microalb/Creat Ratio 5.5 09/25/24 03/21/25 11:10 10:00 Plt Count 331 Creatinine 0.95 Estimated GFR > 60 Hgb A1c (Clinic) 6.9 H AST 41 H ALT 46 H B-Natriuretic Peptide Triglycerides 164 H Cholesterol 166 LDL Cholesterol, Calc 107 H HDL Cholesterol 27 L Urine Creatinine Urine Microalbumin Microalb/Creat Ratio Assessment & Plan Assessment & Plan (1) Type 2 diabetes mellitus with hyperglycemia: Code(s): E11.65 - Type 2 diabetes mellitus with hyperglycemia Category: Medical Qualifiers: Diabetes mellitus long line teamster insulin use: without fdc use Qualified Code(s): E11.65 - Type 2 diabetes mellitus with hyperglycemia (2) Morbid obesity: Code(s): E66.01 - Morbid (severe) obesity due to excess calories Category: Medical (3) Hypercholesterolemia: Code(s): E78.00 - Pure hypercholesterolemia, unspecified Category: Medical Plan In summary this is a 44-year-old male with uncontrolled type 2 diabetes. Increase Mounjaro to 10 mg weekly to promote weight loss. Patient will work on lifestyle modifications. He was successful with this in the past. Discussed pathophysiology of Type II Diabetes Mellitus with the patient in detail.? I explained the fdc risks and complications associated with uncontrolled diabetes including nephropathy, neuropathy, peripheral vascular disease, retinopathy, increased risk of heart disease and stroke.? Referred to Gastroenterology for review of liver ultrasound and elevated LFTs. Recommended avoidance of alcohol, processed foods and high-cholesterol foods. Follow up in 3 months. Orders: Orders AMB Glucose Monitoring Today E11.9 - Type 2 diabetes mellitus without complications AMB Hemoglobin A1c Today E11.65 - Type 2 diabetes mellitus with hyperglycemia Referrals Gastroenterology Referral R93.2 - Abnormal findings on diagnostic imaging of liver and biliary tract Medications: New tirzepatide (Mounjaro) 10 mg (0.5 mL) subcut QWEEK 6 mL 1RF 84 days Discontinued tirzepatide (Mounjaro) Discontinued Reason: Doctor's Order 7.5 mg (0.5 mL) subcut QWEEK 6 mL 1RF Coding Level of Care Code Est Pt Level 4 (55939) Diagnoses Type 2 diabetes mellitus with hyperglycemia, without long-term current use of insulin E11.65 Diabetes mellitus long line teamster insulin use: without long line teamster use Morbid obesity E66.01 Hypercholesterolemia E78.00 CPT Codes Details - CPT: 41992 - Glucose monitoring, continuous-physician I&R ([id number])
[2025-03-22 11:29] VITALS: BP 114/68; PULSE 90; O2SAT 97; BMI 45.2
[2025-03-22 11:39] LABS: Glucose, Whole Blood 191 mg/dL (60-115)
== END 2025-03-22 12:11 | disposition home or self-care (01) ==
LOC: HO.ENCR 11:24
PROVIDERS: PCP Internal Medicine; Visit Provider Physician Assistant Medical
DX: E11.65 Type 2 diabetes mellitus with hyperglycemia (principal); E66.01 Morbid (severe) obesity due to excess calories; E78.00 Pure hypercholesterolemia, unspecified

== ENCOUNTER → 2025-03-22 11:23 | Outpatient (BNVA) | payer OTHER, SELFPAY | PROVIDERS: PCP Internal Medicine; Visit Provider Physician Assistant Medical | DX: E11.65 Type 2 diabetes mellitus with hyperglycemia (principal); E66.01 Morbid (severe) obesity due to excess calories; E78.00 Pure hypercholesterolemia, unspecified | CPT/HCPCS: 82947; 83036; 99212 ==